=== PATIENT | female | born 1975 | race Caucasian/White ===

== ENCOUNTER 2017-08-09 12:30 | Outpatient (CLI) | payer MEDICARE ==
[~2017-08-09] VITALS: Ht 165.1 cm; Wt 64.4 kg
[2017-08-09 13:11] VITALS: BP 112/73
[2017-08-09 13:25] LABS: BASOPHILS % (AUTO) 0 % (0-10); EOSINOPHILS # (AUTO) 0.2 10^3/uL (0.0-0.3); EOSINOPHILS % (AUTO) 2 % (0-10); HEMATOCRIT 39 % (35-52); HEMOGLOBIN 13.9 G/DL (11.5-16.0); LYMPHOCYTES # (AUTO) 3.5 X 10^3 (1.0-4.0); LYMPHOCYTES % (AUTO) 32 % (12-44); MEAN CORPUSCULAR HEMOGLOBIN 33 PG (25-34); MEAN CORPUSCULAR HGB CONC 35 G/DL (32-36); MEAN CORPUSCULAR VOLUME 92 FL (80-99); MEAN PLATELET VOLUME 10.6 FL (7.4-10.4); MONOCYTES # (AUTO) 0.5 X 10^3 (0.0-1.0); MONOCYTES % (AUTO) 5 % (0-12); NEUTROPHILS # (AUTO) 6.7 X 10^3 (1.8-7.8); NEUTROPHILS % (AUTO) 62 % (42-75); PLATELET COUNT 315 10^3/uL (130-400); RED BLOOD COUNT 4.27 10^6/uL (4.35-5.85); RED CELL DISTRIBUTION WIDTH 13.7 % (10.0-14.5); WHITE BLOOD COUNT 10.9 10^3/uL (4.3-11.0)
[2017-08-09] MEDS ORDERED: LURA40TA3 PO (14:28)
[2017-08-09] MEDS ORDERED: OXCA300T PO (14:28)
[2017-08-09] MEDS ORDERED: CLON0.1T PO (14:28)
== END 2017-08-09 13:00 | disposition home or self-care (01) ==
LOC: PREOP 12:30
PROVIDERS: ATTEND Obstetrics & Gynecology
DX: Z01.812 Encounter for preprocedural laboratory examination (principal); Z11.2 Encounter for screening for other bacterial diseases; D25.9 Leiomyoma of uterus, unspecified; N87.9 Dysplasia of cervix uteri, unspecified
CPT/HCPCS: 36415; 85025; 86850; 86900; 86901; 87081

== ENCOUNTER 2017-08-16 06:00 | Day surgery (SDC) | payer MEDICARE ==
[~2017-08-16] VITALS: Ht 165.1 cm; Wt 64.4 kg
[~2017-08-16 06:00] MED LIST: CLON0.1T PO; LURA40TA3 PO; OXCA300T PO
[2017-08-16] MEDS ORDERED: ATRACURIUM 50 MG/5 ML (TRACRIUM) IV ONE ×4 (06:01→08:39)
--- OUTSIDE RECORDS SUMMARY | 2017-08-16 06:17 | XMS REPORT ---
Author Author ÁNGEL SYDNI Organization [facility] Address [address] [place] [address] Care Team Providers Care Technical Sales Director Name Role Phone NIURKAANNABELLA ONEILA Unavailable PROBLEMS Type Condition ICD9-CM Code [id number] Code Onset Dates Condition Status SNOMED Code Problem Severe episode of recurrent major depressive disorder, without psychotic features F33.2 Active 53026914 Problem PTSD (post-traumatic stress disorder) F43.10 Active 25699516 Problem Bipolar 2 disorder F31.81 Active 02448032 Problem Cannabis use disorder, moderate, dependence F12.20 Active 07718538 Problem Dysmenorrhea N94.6 Active 433089168 Problem Methamphetamine use disorder, 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 Active 339564063 Problem Methamphetamine use disorder, moderate, 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 Active 15237521 Problem Cannabis use disorder, mild, abuse F12.10 Active 56560768 Problem High risk medication use Z79.899 Active 933277640 ALLERGIES No Information ENCOUNTERS Encounter Location Date Diagnosis [facility] [id number] [place] [address]1141- 6247 July, Bipolar 2 disorder F31.81 ; PTSD (post-traumatic stress disorder) F43.10 ; Methamphetamine use disorder, 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 and Cannabis use disorder, moderate, dependence F12.20 [facility] [address] [place] [address] 73559- 5681 Jun, [facility] [address] [place] [id number] [place] [address] 96910- 9833 May, Bipolar 2 disorder F31.81 ; PTSD (post-traumatic stress disorder) F43.10 ; Methamphetamine use disorder, 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 and Cannabis use disorder, moderate, dependence F12.20 [facility] [address] [place] [address] 29827- 2909 May, [place] [address] [address] May, Well woman exam with routine gynecological exam Z01.419 ; Dysmenorrhea N94.6 ; Breast cancer screening Z12.31 and Poor dentition K08.9 [place] [address] [address] May, [place] [address] [place] [id number] [place] [address] 97380- 5092 Feb, Bipolar 2 disorder F31.81 ; PTSD (post-traumatic stress disorder) F43.10 ; Methamphetamine use disorder, 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 and Cannabis use disorder, mild, abuse F12.10 [place] [address] [place] [address] 36741- 3072 Feb, [place] [address] [place] [id number] [place] [address] 95802- 1121 Jan, High risk medication use Z79.899 [place] [id number] [place] [address] 17903- 2396 Jan, Bipolar 2 disorder F31.81 ; PTSD (post-traumatic stress disorder) F43.10 ; Methamphetamine use disorder, moderate, 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 and Cannabis use disorder, mild, abuse F12.10 [place] [address] [place] [address] 81650- 6191 Jan, Bipolar 2 disorder F31.81 ; PTSD (post-traumatic stress disorder) F43.10 ; Methamphetamine use disorder, moderate, 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 and Cannabis use disorder, mild, abuse F12.10 [place] [address] [place] [address] 05053- 8110 Jan, High risk medication use Z79.899 ; Cannabis use disorder, mild, abuse F12.10 ; Methamphetamine use disorder, moderate, 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 ; PTSD (post-traumatic stress disorder) F43.10 and Bipolar 2 disorder F31.81 [place] [id number] [place] [address] 23455- 0468 Jan, Bipolar 2 disorder F31.81 ; PTSD (post-traumatic stress disorder) F43.10 ; Methamphetamine use disorder, moderate, 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 and Cannabis use disorder, mild, abuse F12.10 [place] [address] [place] [address] [id number] [place] [address] 36957- 9514 Jan, High risk medication use Z79.899 [place] [address] [address]- 5186 Jan, High risk medication use Z79.899 [facility] [address] [place] [address] 719169 -6473 Jan, Viral pharyngitis J02.[address] 86[address]- 5153 Jan, High risk medication use Z79.899 [place] [address] 17484- 4325 Dec, High risk medication use Z79.899 ; PTSD (post-traumatic stress disorder) F43.10 ; Bipolar 2 disorder F31.81 ; Methamphetamine use disorder, moderate, 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 and Cannabis use disorder, mild, abuse F12.10 [place] [id number] [place] [address] 92233- 2962 Dec, Tailbone injury, subsequent encounter S39.92XD and Encounter for immunization Z23 [address] [address]- 8810 Dec, Bipolar 2 disorder F31.81 and PTSD (post-traumatic stress disorder) F43.10 [facility] [address] [place] [address] 60524 -3566 Dec, Acute midline low back pain without sciatica M54.[address] 56894- 1332 Dec, Bipolar 2 disorder F31.81 [facility] [address] [id number] 26 Nov, 2016 Dental examination Z01.20 [facility] [address] [place] [address] 740390- 4006 25 Nov, 2016 Dental examination Z01.20 [facility] [address] [address] 97[address] 25 Nov, 2016 Urine discoloration R39.89 ; Acute cystitis with hematuria N30.01 and Severe episode of recurrent major depressive disorder, without psychotic features F33.2 [facility] [id number] [place] [address] 39397- 2386 14 Jun, 2014 [facility] [id number] [place] [address] 42860- 0302 Jun, [facility] [id number] [place] [address] 99691- 7976 May, [facility] [address] [place] [address] 16192- 2543 Jan, [facility] [id number] [place] [address] 27772- 0786 Feb, [facility] [address] [address]- 254 Feb, [facility] [address] [place] [address] 20768 2546 16 Jan, 2010 [facility] [address] [address] 2546 Feb, [facility] [id number] [place] [address] 01035 2546 Jan, [facility] [address] [address]- 2546 Jan, [facility] [address] [place] [address] 00894- 2546 Jan, [facility] [address] [facility] [place] [id number] [address] 14 Dec, 2008 IMMUNIZATIONS No Known Immunizations SOCIAL HISTORY Never Assessed REASON FOR VISIT PALS-latuda PLAN OF CARE VITAL SIGNS MEDICATIONS Medication Instructions Dosage Frequency Start Date End Date Duration Status Latuda 40 mg Orally every dinner time 1 tablet Dec, 90 days Active RESULTS No Results PROCEDURES No Known procedures INSTRUCTIONS MEDICATIONS ADMINISTERED No Known Medications MEDICAL (GENERAL) HISTORY Type Description Date Medical History endometriosis 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
--- OUTSIDE RECORDS SUMMARY | 2017-08-16 06:17 | XMS REPORT ---
Author Author MADDENHUNTER AmezquitaELE Organization [facility] Address [address] [place] [address] Care Team Providers Care Operations Manager Station Name Role Phone SUJEY MADDEN Unavailable PROBLEMS Type Condition ICD9-CM Code [id number] Code Onset Dates Condition Status SNOMED Code Problem Severe episode of recurrent major depressive disorder, without psychotic features F33.2 Active 83856365 Problem PTSD (post-traumatic stress disorder) F43.10 Active 98475889 Problem Bipolar 2 disorder F31.81 Active 30487608 Problem Cannabis use disorder, moderate, dependence F12.20 Active 11327848 Problem Dysmenorrhea N94.6 Active 930787530 Problem Methamphetamine use disorder, 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 Active 223515445 Problem Methamphetamine use disorder, moderate, 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 Active 28024274 Problem Cannabis use disorder, mild, abuse F12.10 Active 44968108 Problem High risk medication use Z79.899 Active 394556652 ALLERGIES No Known Allergies ENCOUNTERS Encounter Location Date Diagnosis [facility] [address] [place] [address] 38193- 1268 July, Bipolar 2 disorder F31.81 ; PTSD (post-traumatic stress disorder) F43.10 ; Methamphetamine use disorder, 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 and Cannabis use disorder, moderate, dependence F12.20 [facility] [address] [place] [address] 81351- 7627 Jun, [facility] [address] [place] [id number] [place] [address] 05300- 8669 May, Bipolar 2 disorder F31.81 ; PTSD (post-traumatic stress disorder) F43.10 ; Methamphetamine use disorder, 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 and Cannabis use disorder, moderate, dependence F12.20 [facility] [address] [place] [address] 38802- 7144 May, [place] [address] [address]- 4008 May, Well woman exam with routine gynecological exam Z01.419 ; Dysmenorrhea N94.6 ; Breast cancer screening Z12.31 and Poor dentition K08.9 [place] [address] [address]- [address] May, [place] [address] [place] [id number] [place] [address] 65698- 1927 Feb, Bipolar 2 disorder F31.81 ; PTSD (post-traumatic stress disorder) F43.10 ; Methamphetamine use disorder, 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 and Cannabis use disorder, mild, abuse F12.10 [place] [address] [place] [id number] [place] [address] 66406- 3464 Feb, [place] [address] [place] [id number] [place] [address] 08923- 2789 Jan, High risk medication use Z79.899 [place] [address] [place] [id number] [place] [address] 01700- 6742 Jan, Bipolar 2 disorder F31.81 ; PTSD (post-traumatic stress disorder) F43.10 ; Methamphetamine use disorder, moderate, 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10 and Bipolar 2 disorder F31.81 [place] [id number] [place] [address] 95227- 8614 Jan, Bipolar 2 disorder F31.81 ; PTSD (post-traumatic stress disorder) F43.10 ; Methamphetamine use disorder, moderate, 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 and Cannabis use disorder, mild, abuse F12.10 [place] [address] [place] [id number] [place] [address] 93293- 4819 Jan, High risk medication use Z79.899 [place] [address] 21765- 2547 Jan, High risk medication use Z79.899 [facility] [address] [place] [address] 324223 -7684 Jan, Viral pharyngitis J02.9 [place] [address] 26631- 6114 Jan, High risk medication use Z79.899 [place] [address] 28106- 5969 Dec, High risk medication use Z79.899 ; PTSD (post-traumatic stress disorder) F43.10 ; Bipolar 2 disorder F31.81 ; Methamphetamine use disorder, moderate, 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 and Cannabis use disorder, mild, abuse F12.10 [place] [address] [place] [id number] [place] [address] 27155- 5471 Dec, Tailbone injury, subsequent encounter S39.92XD and Encounter for immunization Z23 [place] [id number] [place] [address] 56738- 1824 Dec, Bipolar 2 disorder F31.81 and PTSD (post-traumatic stress disorder) F43.10 [facility] [address] [place] [address] 17333 -3546 Dec, Acute midline low back pain without sciatica M54.[address] 7[address]65- 0316 Dec, Bipolar 2 disorder F31.81 [facility] [address] [id number] [id number] 26 Nov, 2016 Dental examination Z01.20 [facility] [address] [id number] [place] [address] 51769- 2528 25 Nov, 2016 Dental examination Z01.20 [facility] [address] [place] [id number] [place] [address] 23766- 6620 25 Nov, 2016 Urine discoloration R39.89 ; Acute cystitis with hematuria N30.01 and Severe episode of recurrent major depressive disorder, without psychotic features F33.2 [facility] [id number] [place] [address] 47507- 9946 14 Jun, 2014 [facility] [id number] [place] [address] 57819- 5603 13 Jun, 2014 [facility] [id number] [place] [address] 64958- 3326 May, [facility] [address] [place] [address] 45806- 2143 Jan, [facility] [address] [id number] [place] [address] 92316- 5029 Feb, [facility] [address], [place] [address]- 2548 Feb, [facility] [address] [place] [address] 89550- 2543 16 Jan, 2010 [facility] [address] [place] [address] 01469 2549 Feb, [facility] [address] [id number] [place] [address] 19563 2546 Jan, [facility] [address], [place] [address]- 2546 Jan, [facility] [id number] [place] [address] 80807- 2546 Jan, [facility] [address] [facility] [id number] [address]- 0278 Dec, IMMUNIZATIONS No Known Immunizations SOCIAL HISTORY Never Assessed REASON FOR VISIT UTI symptoms--tcuppettRN, -Discolored urine PLAN OF CARE Activity Details Follow Up 3 Weeks Reason:est care VITAL SIGNS Weight 141.5 lbs 2016-11-27 Temperature 97.2 degrees Fahrenheit 2016-11-27 Heart Rate 76 bpm 2016-11-27 Respiratory Rate 18 2016-11-27 Blood pressure systolic 118 mmHg 2016-11-27 Blood pressure diastolic 78 mmHg 2016-11-27 MEDICATIONS Medication Instructions Dosage Frequency Start Date End Date Duration Status Ciprofloxacin HCl 500 mg Orally Twice a day 1 tablet 12h Nov, Dec, 07 days Active RESULTS Name Result Date Reference Range UA LONG DIP (IN HOUSE) 2016-11-27 Lot # [id number] Exp date 06/02/17 Clarity clear Color yellow Odor no GLU Negative MARLYN Negative KET Negative SG 1.020 BLO trace-intact pH 6.0 Protein Trace URO 1.0 NIT Negative WES Trace Lot # Exp date CULTURE, URINE 2016-11-27 Urine Culture, Routine Final report Result 1 No growth PROCEDURES Procedure Date Ordered Result Body Site [facility] VISIT ESTABLISHED PATIENT Nov 27, 2016 LAB NOT BILLED BY [facility] Nov 27, 2016 URINALYSIS, AUTO, W/O SCOPE Nov 27, 2016 INSTRUCTIONS MEDICATIONS ADMINISTERED No Known Medications MEDICAL (GENERAL) HISTORY Type Description Date Medical History endometriosis 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
--- OUTSIDE RECORDS SUMMARY | 2017-08-16 06:18 | XMS REPORT ---
Author Author ÁNGEL SYDNI Organization [facility] [place] Address [address] [place] [address] Care Team Providers Care Assistant Store Manager Operations Name Role Phone NIURKAANNABELLA ONEILA Unavailable PROBLEMS Type Condition ICD9-CM Code PSY20-IL Code Onset Dates Condition Status SNOMED Code Problem Severe episode of recurrent major depressive disorder, without psychotic features F33.2 Active 30501849 Problem PTSD (post-traumatic stress disorder) F43.10 Active 99385453 Problem Bipolar 2 disorder F31.81 Active 72809330 Problem Cannabis use disorder, moderate, dependence F12.20 Active 83640858 Problem Dysmenorrhea N94.6 Active 254267354 Problem Methamphetamine use disorder, 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 Active 862849767 Problem Methamphetamine use disorder, moderate, 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 Active 26096989 Problem Cannabis use disorder, mild, abuse F12.10 Active 47521536 Problem High risk medication use Z79.899 Active 549964776 ALLERGIES No Information ENCOUNTERS Encounter Location Date Diagnosis [facility] [id number] [place] [address]493- 1157 July, Bipolar 2 disorder F31.81 ; PTSD (post-traumatic stress disorder) F43.10 ; Methamphetamine use disorder, 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 and Cannabis use disorder, moderate, dependence F12.20 [facility] [id number] [place] [address] 21020- 4754 Jun, [facility] [address] [place] [id number] [place] [address] 56088- 7027 May, Bipolar 2 disorder F31.81 ; PTSD (post-traumatic stress disorder) F43.10 ; Methamphetamine use disorder, 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 and Cannabis use disorder, moderate, dependence F12.20 [facility] [id number] [place] [address] 46576- 9435 May, [place] [address] [address] May, Well woman exam with routine gynecological exam Z01.419 ; Dysmenorrhea N94.6 ; Breast cancer screening Z12.31 and Poor dentition K08.9 [place] [address] [address] May, [place] [address] [place] [id number] [place] [address] 26026- 8190 Feb, Bipolar 2 disorder F31.81 ; PTSD (post-traumatic stress disorder) F43.10 ; Methamphetamine use disorder, 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 and Cannabis use disorder, mild, abuse F12.10 [place] [id number] [place] [address] 23920- 0261 Feb, [place] [address] [place] [id number] [place] [address] 37732- 7310 Jan, High risk medication use Z79.899 [place] [address] [place] [address] [id number] [place] [address] 64693- 8234 Jan, Bipolar 2 disorder F31.81 ; PTSD (post-traumatic stress disorder) F43.10 ; Methamphetamine use disorder, moderate, 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 and Cannabis use disorder, mild, abuse F12.10 [place] [id number] [place] [address] 01233- 5727 Jan, Bipolar 2 disorder F31.81 ; PTSD (post-traumatic stress disorder) F43.10 ; Methamphetamine use disorder, moderate, 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 and Cannabis use disorder, mild, abuse F12.10 [place] [id number] [place] [address] 98775- 3585 Jan, High risk medication use Z79.899 ; Cannabis use disorder, mild, abuse F12.10 ; Methamphetamine use disorder, moderate, 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 ; PTSD (post-traumatic stress disorder) F43.10 and Bipolar 2 disorder F31.81 [place] [id number] [place] [address] 62567- 8235 Jan, Bipolar 2 disorder F31.81 ; PTSD (post-traumatic stress disorder) F43.10 ; Methamphetamine use disorder, moderate, 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 and Cannabis use disorder, mild, abuse F12.10 [place] [address] [place] [id number] [place] [address] 52139- 9753 Jan, High risk medication use Z79.899 [place] [address] 16647- 8012 Jan, High risk medication use Z79.899 [facility] [address] [place] [address] 389128 -0940 Jan, Viral pharyngitis J02.[address] [address]- 6971 Jan, High risk medication use Z79.899 [place] [address] 60752- 6947 Dec, High risk medication use Z79.899 ; PTSD (post-traumatic stress disorder) F43.10 ; Bipolar 2 disorder F31.81 ; Methamphetamine use disorder, moderate, 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 and Cannabis use disorder, mild, abuse F12.10 [place] [id number] [place] [address] 81917- 6758 Dec, Tailbone injury, subsequent encounter S39.92XD and Encounter for immunization Z23 [address] [address]- 7354 Dec, Bipolar 2 disorder F31.81 and PTSD (post-traumatic stress disorder) F43.10 [facility] [address] [place] [address] 35060 -7430 Dec, Acute midline low back pain without sciatica M54.[address] 09359- 6477 Dec, Bipolar 2 disorder F31.81 [facility] [address] [id number] 26 Nov, 2016 Dental examination Z01.20 [facility] [id number] [place] [address] 488337- 9866 25 Nov, 2016 Dental examination Z01.20 [facility] [address], [place] [address] 25 Nov, 2016 Urine discoloration R39.89 ; Acute cystitis with hematuria N30.01 and Severe episode of recurrent major depressive disorder, without psychotic features F33.2 [facility] [id number] [place] [address] 38340- 1466 14 Jun, 2014 [facility] [place] [address] [place] [address] [id number] [place] [address] 62534- 0798 Jun, [facility] [id number] [place] [address] 32279- 3222 May, [facility] [id number] [place] [address] 92328- 2549 Jan, [facility] [id number] [place] [address] 81298- 5546 Feb, [facility] [address] [address] Feb, [facility] [id number] [place] [address] 14102 2546 16 Jan, 2010 [facility] [address], [place] [address] 2546 Feb, [facility] [address] [address] [id number] [place] [address] 92423 2546 Jan, [facility] [address], [place] [address]- 2546 Jan, [facility] [id number] [place] [address] 29076- 2546 Jan, [facility] [address] [facility] [id number] [address] Dec, IMMUNIZATIONS No Known Immunizations SOCIAL HISTORY Never Assessed REASON FOR VISIT medication PLAN OF CARE VITAL SIGNS MEDICATIONS Medication Instructions Dosage Frequency Start Date End Date Duration Status Latuda 40 MG Orally every dinner time 1 tablet Dec, Active RESULTS No Results PROCEDURES No Known procedures INSTRUCTIONS MEDICATIONS ADMINISTERED No Known Medications MEDICAL (GENERAL) HISTORY Type Description Date Medical History endometriosis 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
--- OUTSIDE RECORDS SUMMARY | 2017-08-16 06:18 | XMS REPORT ---
Author Author ÁNGEL SYDNI Organization [facility] [place] Address [address] [place] [address] Care Team Providers Care Food Safety Field Specialist Name Role Phone NIURKAANNABELLA ONEILA Unavailable PROBLEMS Type Condition ICD9-CM Code XHF30-DS Code Onset Dates Condition Status SNOMED Code Problem Severe episode of recurrent major depressive disorder, without psychotic features F33.2 Active 89176423 Problem PTSD (post-traumatic stress disorder) F43.10 Active 19652225 Problem Bipolar 2 disorder F31.81 Active 02311593 Problem Cannabis use disorder, moderate, dependence F12.20 Active 09000012 Problem Dysmenorrhea N94.6 Active 349200245 Problem Methamphetamine use disorder, 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 Active 357454548 Problem Methamphetamine use disorder, moderate, 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 Active 25051164 Problem Cannabis use disorder, mild, abuse F12.10 Active 49103897 Problem High risk medication use Z79.899 Active 110684723 ALLERGIES No Information ENCOUNTERS Encounter Location Date Diagnosis [facility] [place] [address] [place] [address] 57940- 7968 July, Bipolar 2 disorder F31.81 ; PTSD (post-traumatic stress disorder) F43.10 ; Methamphetamine use disorder, 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 and Cannabis use disorder, moderate, dependence F12.20 [facility] [place] [address] [place] [address] 39030- 8300 Jun, [facility] [place] [address] [place] [id number] [place] [address] 00946- 6672 May, Bipolar 2 disorder F31.81 ; PTSD (post-traumatic stress disorder) F43.10 ; Methamphetamine use disorder, 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 and Cannabis use disorder, moderate, dependence F12.20 [facility] [place] [address] [place] [address] 97379- 0945 May, [place] [address], [place] [address]- 1167 May, Well woman exam with routine gynecological exam Z01.419 ; Dysmenorrhea N94.6 ; Breast cancer screening Z12.31 and Poor dentition K08.9 [place] [address], [place] [address]- 8[address] May, [place] [address] [place] [id number] [place] [address] 15780- 8817 Feb, Bipolar 2 disorder F31.81 ; PTSD (post-traumatic stress disorder) F43.10 ; Methamphetamine use disorder, 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 and Cannabis use disorder, mild, abuse F12.10 [place] [address] [place] [address] 93037- 3737 Feb, [place] [address] [place] [id number] [place] [address] 13069- 3955 Jan, High risk medication use Z79.899 [place] [address] [place] [id number] [place] [address] 56559- 4161 Jan, Bipolar 2 disorder F31.81 ; PTSD (post-traumatic stress disorder) F43.10 ; Methamphetamine use disorder, moderate, 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 and Cannabis use disorder, mild, abuse F12.10 [place] [id number] [place] [address] 41547- 9081 Jan, Bipolar 2 disorder F31.81 ; PTSD (post-traumatic stress disorder) F43.10 ; Methamphetamine use disorder, moderate, 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 and Cannabis use disorder, mild, abuse F12.10 [place] [address] [place] [address] 87179- 8186 Jan, High risk medication use Z79.899 ; Cannabis use disorder, mild, abuse F12.10 ; Methamphetamine use disorder, moderate, 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 ; PTSD (post-traumatic stress disorder) F43.10 and Bipolar 2 disorder F31.81 [place] [id number] [place] [address] 03561- 4219 Jan, Bipolar 2 disorder F31.81 ; PTSD (post-traumatic stress disorder) F43.10 ; Methamphetamine use disorder, moderate, 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 and Cannabis use disorder, mild, abuse F12.10 [place] [address] [place] [id number] [place] [address] 47983- 1723 Jan, High risk medication use Z79.899 [place] [address] 13340- 9406 Jan, High risk medication use Z79.899 [facility] [address] [place] [address] [phone] -2777 Jan, Viral pharyngitis J02.[address] 94026- 5024 Jan, High risk medication use Z79.899 [place] [address] 60893- 8980 Dec, High risk medication use Z79.899 ; PTSD (post-traumatic stress disorder) F43.10 ; Bipolar 2 disorder F31.81 ; Methamphetamine use disorder, moderate, 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 [address] [place] [address] 72881 -9133 Dec, Acute midline low back pain without sciatica M54.[address] 66140- 8006 Dec, Bipolar 2 disorder F31.81 [facility] [address] [id number] 26 Nov, 2016 Dental examination Z01.20 [facility] [place] [address] [place] [address] 778385- 2236 25 Nov, 2016 Dental examination Z01.20 [facility] [place] [address], [place] [address]- 9390 25 Nov, 2016 Urine discoloration R39.89 ; Acute cystitis with hematuria N30.01 and Severe episode of recurrent major depressive disorder, without psychotic features F33.2 [facility] [place] [address] [place] [address] [id number] [place] [address] 69778- 2766 14 Jun, 2014 [facility] [place] [address] [address] [id number] [place] [address] 61386- 6088 Jun, [facility] [place] [address] [place] [address] [id number] [place] [address] 66193- 2402 May, [facility] [place] [address] [place] [address] 33344- 2547 Jan, [facility] [place] [address] [address] [id number] [place] [address] 24757- 9406 Feb, [facility] [place] [address], [place] [address]- 2544 Feb, [facility] [place] [id number] [place] [address] 07143 2546 16 Jan, 2010 [facility] [place] [address], [place] [address] 2546 Feb, [facility] [place] [address] [address] [id number] [place] [address] 63672 2546 Jan, [facility] [place] [address], [place] [address]- 2546 Jan, [facility] [place] [id number] [place] [address] 87391- 2546 Jan, [facility] [place] [address] [facility] [id number] [place] [address]- 7924 14 Dec, 2008 IMMUNIZATIONS No Known Immunizations SOCIAL HISTORY Never Assessed REASON FOR VISIT PALS IN- Latuda PLAN OF CARE VITAL SIGNS MEDICATIONS No Known Medications RESULTS No Results PROCEDURES No Known procedures INSTRUCTIONS MEDICATIONS ADMINISTERED No Known Medications MEDICAL (GENERAL) HISTORY Type Description Date Medical History endometriosis 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
--- OUTSIDE RECORDS SUMMARY | 2017-08-16 06:18 | XMS REPORT ---
Author Author LATIA RUBIO Organization [facility] Address [address] [place] [address] Care Team Providers Care Transportation Officer Name Role Phone LATIA RUBIO Unavailable PROBLEMS Type Condition ICD9-CM Code [id number] Code Onset Dates Condition Status SNOMED Code Problem Severe episode of recurrent major depressive disorder, without psychotic features F33.2 Active 61384690 Problem PTSD (post-traumatic stress disorder) F43.10 Active 88909034 Problem Bipolar 2 disorder F31.81 Active 87048613 Problem Cannabis use disorder, moderate, dependence F12.20 Active 14773873 Problem Dysmenorrhea N94.6 Active 847788854 Problem Methamphetamine use disorder, 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 Active 646822539 Problem Methamphetamine use disorder, moderate, 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 Active 65212052 Problem Cannabis use disorder, mild, abuse F12.10 Active 54462520 Problem High risk medication use Z79.899 Active 834187789 ALLERGIES No Known Allergies ENCOUNTERS Encounter Location Date Diagnosis [facility] [address] [place] [address] 29650- 6791 July, Bipolar 2 disorder F31.81 ; PTSD (post-traumatic stress disorder) F43.10 ; Methamphetamine use disorder, 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 and Cannabis use disorder, moderate, dependence F12.20 [facility] [address] [place] [address] 10372- 6814 Jun, [facility] [address] [place] [address] [id number] [place] [address] 13106- 8074 May, Bipolar 2 disorder F31.81 ; PTSD (post-traumatic stress disorder) F43.10 ; Methamphetamine use disorder, 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 and Cannabis use disorder, moderate, dependence F12.20 [facility] [address] [place] [address] 20552- 4042 May, [place] [address] [address] May, Well woman exam with routine gynecological exam Z01.419 ; Dysmenorrhea N94.6 ; Breast cancer screening Z12.31 and Poor dentition K08.9 [place] [address], [place] [address] May, [place] [address] [place] [address] [id number] [place] [address] 60756- 7475 Feb, Bipolar 2 disorder F31.81 ; PTSD (post-traumatic stress disorder) F43.10 ; Methamphetamine use disorder, 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 and Cannabis use disorder, mild, abuse F12.10 [place] [id number] [place] [address] 42394- 4421 Feb, [place] [address] [id number] [place] [address] 75232- 9052 Jan, High risk medication use Z79.899 [place] [id number] [place] [address] 87009- 6368 Jan, Bipolar 2 disorder F31.81 ; PTSD (post-traumatic stress disorder) F43.10 ; Methamphetamine use disorder, moderate, 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10 and Bipolar 2 disorder F31.81 [place] [id number] [place] [address] 01450- 1316 Jan, Bipolar 2 disorder F31.81 ; PTSD (post-traumatic stress disorder) F43.10 ; Methamphetamine use disorder, moderate, 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 and Cannabis use disorder, mild, abuse F12.10 [place] [address] [address] [id number] [place] [address] 27615- 7004 Jan, High risk medication use Z79.899 [place] [address] 43569- 3184 Jan, High risk medication use Z79.899 [facility] [address] [place] [address] 127403 -3494 Jan, Viral pharyngitis J02.9 [place] [address] 88695- 4172 Jan, High risk medication use Z79.899 [place] [address] 83705- 0029 Dec, High risk medication use Z79.899 ; PTSD (post-traumatic stress disorder) F43.10 ; Bipolar 2 disorder F31.81 ; Methamphetamine use disorder, moderate, 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 and Cannabis use disorder, mild, abuse F12.10 [place] [address] [id number] [place] [address] 94549- 5395 Dec, Tailbone injury, subsequent encounter S39.92XD and Encounter for immunization Z23 [place] [id number] [place] [address] 53381- 4176 Dec, Bipolar 2 disorder F31.81 and PTSD (post-traumatic stress disorder) F43.10 [facility] [address] [place] [address] 22022 -1790 Dec, Acute midline low back pain without sciatica M54.[address] 7[address]16- 1482 Dec, Bipolar 2 disorder F31.81 [facility] [address] [id number] [id number] 26 Nov, 2016 Dental examination Z01.20 [facility] [id number] [place] [address] 72462- 9472 25 Nov, 2016 Dental examination Z01.20 [facility] [id number] [place] [address] 84950- 3582 25 Nov, 2016 Urine discoloration R39.89 ; Acute cystitis with hematuria N30.01 and Severe episode of recurrent major depressive disorder, without psychotic features F33.2 [facility] [id number] [place] [address] 31733- 2876 14 Jun, 2014 [facility] [id number] [place] [address] 75579- 0464 13 Jun, 2014 [facility] [id number] [place] [address] 26919- 3572 May, [facility] [address] [place] [address] 00338- 5517 Jan, [facility] [id number] [place] [address] 63527- 2559 Feb, [facility] [address], [place] [address]- 2549 Feb, [facility] [address] [place] [address] 05397- 2542 16 Jan, 2010 [facility] [address] [place] [address] 55677 2544 Feb, [facility] [id number] [place] [address] 23277 2546 Jan, [facility] [address] [address]- 2546 Jan, [facility] [address] [place] [address] 01753- 2546 Jan, [facility] [address] [facility] [id number] [place] [address]- 7860 14 Dec, 2008 IMMUNIZATIONS Vaccine Route Administration Date Status FLUARIX QUAD (3 AND UP) 2016 IM Intramuscular Dec 26, 2016 Administered SOCIAL HISTORY Never Assessed REASON FOR VISIT Establish Care, pt. states she came here earlier in the month due to falling down and having back pain and complains of still having lower back pain --- [place],[facility] PLAN OF CARE VITAL SIGNS Height 66 in 2016-12-26 Weight 143.7 lbs 2016-12-26 Temperature 98.3 degrees Fahrenheit 2016-12-26 Heart Rate 90 bpm 2016-12-26 Respiratory Rate 20 2016-12-26 BMI 23.19 kg/m2 2016-12-26 Blood pressure systolic 137 mmHg 2016-12-26 Blood pressure diastolic 84 mmHg 2016-12-26 MEDICATIONS Medication Instructions Dosage Frequency Start Date End Date Duration Status PredniSONE 50 mg Orally Once a day 1 tablet 24h Dec, Dec, 07 days Active RESULTS No Results PROCEDURES Procedure Date Ordered Result Body Site FLUARIX QUAD (3 AND UP) 2016Dec 26, 2016 SINGLE IMMUNIZATION ADMIN Dec 26, 2016 Media Visit needs to be added with another visit on the same day Dec 26, 2016 INSTRUCTIONS MEDICATIONS ADMINISTERED No Known Medications MEDICAL (GENERAL) HISTORY Type Description Date Medical History endometriosis Medical History 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
--- OUTSIDE RECORDS SUMMARY | 2017-08-16 06:18 | XMS REPORT ---
Author Author ALDO GRAHAM [facility] IN [facility] Address [address] [place] [address] Care Team Providers Care Cable Respooler Name Role Phone SANTOS ALDO Unavailable PROBLEMS Type Condition ICD9-CM Code [id number] Code Onset Dates Condition Status SNOMED Code Problem Severe episode of recurrent major depressive disorder, without psychotic features F33.2 Active 47740332 Problem PTSD (post-traumatic stress disorder) F43.10 Active 27005386 Problem Bipolar 2 disorder F31.81 Active 31517870 Problem Cannabis use disorder, moderate, dependence F12.20 Active 26178305 Problem Dysmenorrhea N94.6 Active 989522257 Problem Methamphetamine use disorder, 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 Active 962887578 Problem Methamphetamine use disorder, moderate, 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 Active 07418109 Problem Cannabis use disorder, mild, abuse F12.10 Active 74234195 Problem High risk medication use Z79.899 Active 831365976 ALLERGIES No Known Allergies ENCOUNTERS Encounter Location Date Diagnosis [place] [address] [place] [address] 72799- 4523 July, Bipolar 2 disorder F31.81 ; PTSD (post-traumatic stress disorder) F43.10 ; Methamphetamine use disorder, 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 and Cannabis use disorder, moderate, dependence F12.20 [facility] [id number] [address] 8708 Jun, [facility] [id number] [place] [address] 30184- 5012 May, Bipolar 2 disorder F31.81 ; PTSD (post-traumatic stress disorder) F43.10 ; Methamphetamine use disorder, 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 and Cannabis use disorder, moderate, dependence F12.20 [facility] [address] [place] [address] 55937- 9728 May, [place] [address], [place] [address]- 0035 May, Well woman exam with routine gynecological exam Z01.419 ; Dysmenorrhea N94.6 ; Breast cancer screening Z12.31 and Poor dentition K08.9 [place] [address], [place] [address] 5977 May, [place] [address] [place] [address] [id number] [place] [address] 49727- 3389 Feb, Bipolar 2 disorder F31.81 ; PTSD (post-traumatic stress disorder) F43.10 ; Methamphetamine use disorder, 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 and Cannabis use disorder, mild, abuse F12.10 [place] [address] [place] [address] [id number] [place] [address] 96489- 0370 Feb, [place] [address] [place] [id number] [place] [address] 24930- 7616 Jan, High risk medication use Z79.899 [place] [address] [place] [address] [id number] [place] [address] 61927- 0900 Jan, Bipolar 2 disorder F31.81 ; PTSD (post-traumatic stress disorder) F43.10 ; Methamphetamine use disorder, moderate, 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 and Cannabis use disorder, mild, abuse F12.10 [place] [address] [place] [address] 52584- 9591 Jan, Bipolar 2 disorder F31.81 ; PTSD (post-traumatic stress disorder) F43.10 ; Methamphetamine use disorder, moderate, 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 and Cannabis use disorder, mild, abuse F12.10 [place] [address] [place] [address] 61700- 2452 Jan, High risk medication use Z79.899 ; Cannabis use disorder, mild, abuse F12.10 ; Methamphetamine use disorder, moderate, 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 ; PTSD (post-traumatic stress disorder) F43.10 and Bipolar 2 disorder F31.81 [address] [place] [address] 99890- 2511 Jan, Bipolar 2 disorder F31.81 ; PTSD (post-traumatic stress disorder) F43.10 ; Methamphetamine use disorder, moderate, 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 and Cannabis use disorder, mild, abuse F12.10 [place] [address] [place] [id number] [place] [address] 48607- 2802 Jan, High risk medication use Z79.899 [place] [address] 74198- 7734 Jan, High risk medication use Z79.899 [facility] [address] [place] [address] 775873 -0279 Jan, Viral pharyngitis J02.9 [place] [address] [address]72- 2002 Jan, High risk medication use Z79.899 [place] [address] 13321- 2873 Dec, High risk medication use Z79.899 ; PTSD (post-traumatic stress disorder) F43.10 ; Bipolar 2 disorder F31.81 ; Methamphetamine use disorder, moderate, 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 and Cannabis use disorder, mild, abuse F12.10 [place] [address] [place] [id number] [place] [address] 92696- 1531 Dec, Tailbone injury, subsequent encounter S39.92XD and Encounter for immunization Z23 [place] [id number] [place] [address] 06868- 5794 Dec, Bipolar 2 disorder F31.81 and PTSD (post-traumatic stress disorder) F43.10 [facility] [address] 69[address] -2526 Dec, Acute midline low back pain without sciatica M54.[address] 53998- 0919 Dec, Bipolar 2 disorder F31.81 [facility] [address] [id number] [id number] 26 Nov, 2016 Dental examination Z01.20 [facility] [address] [place] [address] 85039- 9226 25 Nov, 2016 Dental examination Z01.20 [facility] [address] [place] [address] 76925- 8213 25 Nov, 2016 Urine discoloration R39.89 ; Acute cystitis with hematuria N30.01 and Severe episode of recurrent major depressive disorder, without psychotic features F33.2 [facility] [address] [place] [id number] [place] [address] 87342- 0016 14 Jun, 2014 [facility] [address] [place] [id number] [place] [address] 95558- 2071 Jun, [facility] [address] [place] [id number] [place] [address] 46824- 8804 May, [facility] [address] [place] [address] 11376- 2543 Jan, [facility] [address] [place] [id number] [place] [address] 77498 2546 Feb, [facility] [address], [place] [address]- 2547 Feb, [facility] [address] [place] [address] 55727 2546 16 Jan, 2010 [facility] [address] [place] [address] 04440 2546 Feb, [facility] [address] [place] [id number] [place] [address] 29212 2546 30 Jan, 2009 [facility] [address], [place] [address] 2546 30 Jan, 2009 [facility] [address] [place] [address] 93548 2546 Jan, [facility] [address] [facility] [id number] [place] [address]- 3545 Dec, IMMUNIZATIONS No Known Immunizations SOCIAL HISTORY Never Assessed REASON FOR VISIT lower back pain after falling down some stairs last week. PATRICIA Morillo. PLAN OF CARE Activity Details Follow Up prn Reason: VITAL SIGNS Height 66 in 2016-12-15 Weight 147 lbs 2016-12-15 Temperature 98.2 degrees Fahrenheit 2016-12-15 Heart Rate 86 bpm 2016-12-15 Respiratory Rate 18 2016-12-15 BMI 23.72 kg/m2 2016-12-15 Blood pressure systolic 122 mmHg 2016-12-15 Blood pressure diastolic 76 mmHg 2016-12-15 MEDICATIONS No Known Medications RESULTS Name Result Date Reference Range Xray : Spine, Lumbar 2-3 views (IN HOUSE) 2016-12-15 PROCEDURES Procedure Date Ordered Result Body Site X-RAY EXAM OF LOWER SPINE Dec 15, 2016 [facility] VISIT ESTABLISHED PATIENT Dec 15, 2016 INSTRUCTIONS MEDICATIONS ADMINISTERED No Known Medications MEDICAL (GENERAL) HISTORY Type Description Date Medical History endometriosis 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
--- OUTSIDE RECORDS SUMMARY | 2017-08-16 06:18 | XMS REPORT ---
Author Author ÁNGEL SYDNI Organization [facility] Address [address] [place] [address] Care Team Providers Care Asbestos Cloth Inspector Name Role Phone NIURKAANNABELLA ONEILA Unavailable PROBLEMS Type Condition ICD9-CM Code [id number] Code Onset Dates Condition Status SNOMED Code Problem Severe episode of recurrent major depressive disorder, without psychotic features F33.2 Active 72989471 Problem PTSD (post-traumatic stress disorder) F43.10 Active 30600075 Problem Bipolar 2 disorder F31.81 Active 08202074 Problem Cannabis use disorder, moderate, dependence F12.20 Active 84855311 Problem Dysmenorrhea N94.6 Active 772676536 Problem Methamphetamine use disorder, 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 Active 558596516 Problem Methamphetamine use disorder, moderate, 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 Active 11418737 Problem Cannabis use disorder, mild, abuse F12.10 Active 23360067 Problem High risk medication use Z79.899 Active 542010763 ALLERGIES No Information ENCOUNTERS Encounter Location Date Diagnosis [facility] [address] [place] [address] 35622- 1261 July, Bipolar 2 disorder F31.81 ; PTSD (post-traumatic stress disorder) F43.10 ; Methamphetamine use disorder, 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 and Cannabis use disorder, moderate, dependence F12.20 [facility] [address] [place] [address] 29269- 6929 Jun, [facility] [address] [place] [id number] [place] [address] 87161- 5589 May, Bipolar 2 disorder F31.81 ; PTSD (post-traumatic stress disorder) F43.10 ; Methamphetamine use disorder, 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 and Cannabis use disorder, moderate, dependence F12.20 [facility] [address] [place] [address] 25572- 3017 May, [place] [address], [place] [address]- 4143 May, Well woman exam with routine gynecological exam Z01.419 ; Dysmenorrhea N94.6 ; Breast cancer screening Z12.31 and Poor dentition K08.9 [place] [address], [place] [address]- 4140 May, [place] [address] [place] [id number] [place] [address] 63869- 7747 Feb, Bipolar 2 disorder F31.81 ; PTSD (post-traumatic stress disorder) F43.10 ; Methamphetamine use disorder, 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 and Cannabis use disorder, mild, abuse F12.10 [place] [address] [place] [address] 83813- 2916 Feb, [place] [address] [place] [id number] [place] [address] 65793- 4991 Jan, High risk medication use Z79.899 [place] [address] [place] [id number] [place] [address] 80750- 8877 Jan, Bipolar 2 disorder F31.81 ; PTSD (post-traumatic stress disorder) F43.10 ; Methamphetamine use disorder, moderate, 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 and Cannabis use disorder, mild, abuse F12.10 [place] [address] [place] [address] 11211- 0804 Jan, Bipolar 2 disorder F31.81 ; PTSD (post-traumatic stress disorder) F43.10 ; Methamphetamine use disorder, moderate, 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 and Cannabis use disorder, mild, abuse F12.10 [place] [address] [place] [address] 47825- 4179 Jan, High risk medication use Z79.899 ; Cannabis use disorder, mild, abuse F12.10 ; Methamphetamine use disorder, moderate, 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 ; PTSD (post-traumatic stress disorder) F43.10 and Bipolar 2 disorder F31.81 [place] [id number] [place] [address] 14580- 9004 Jan, Bipolar 2 disorder F31.81 ; PTSD (post-traumatic stress disorder) F43.10 ; Methamphetamine use disorder, moderate, 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 and Cannabis use disorder, mild, abuse F12.10 [place] [address] [place] [id number] [place] [address] 74253- 4426 Jan, High risk medication use Z79.899 [place] [address] 74532- 0323 Jan, High risk medication use Z79.899 [facility] [address] [place] [address] 846186 -3714 Jan, Viral pharyngitis J02.[address] 16993- 6533 Jan, High risk medication use Z79.899 [place] [address] 15862- 6187 Dec, High risk medication use Z79.899 ; PTSD (post-traumatic stress disorder) F43.10 ; Bipolar 2 disorder F31.81 ; Methamphetamine use disorder, moderate, 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 and Cannabis use disorder, mild, abuse F12.10 [place] [id number] [place] [address] 08261- 4460 Dec, Tailbone injury, subsequent encounter S39.92XD and Encounter for immunization Z23 [address] 76435- 6701 Dec, Bipolar 2 disorder F31.81 and PTSD (post-traumatic stress disorder) F43.10 [facility] [address] [place] [address] 19040 -1406 Dec, Acute midline low back pain without sciatica M54.[address] 36609- 2264 Dec, Bipolar 2 disorder F31.81 [facility] [address] [id number] 26 Nov, 2016 Dental examination Z01.20 [facility] [address] [place] [address] 642323- 9706 25 Nov, 2016 Dental examination Z01.20 [facility] [address], [place] [address]- 5851 25 Nov, 2016 Urine discoloration R39.89 ; Acute cystitis with hematuria N30.01 and Severe episode of recurrent major depressive disorder, without psychotic features F33.2 [facility] [address] [place] [id number] [place] [address] 13691- 3816 14 Jun, 2014 [facility] [address] [place] [id number] [place] [address] 38121- 1205 Jun, [facility] [address] [place] [address] [id number] [place] [address] 62493- 8791 May, [facility] [address] [place] [address] 76828- 2545 Jan, [facility] [address] [id number] [place] [address] 64968- 8136 Feb, [facility] [address], [place] [address]- 2547 Feb, [facility] [address] [place] [address] 84610 2546 16 Jan, 2010 [facility] [address], [place] [address] 2546 Feb, [facility] [address] [place] [id number] [place] [address] 24988 2546 Jan, [facility] [address], [place] [address]- 2546 Jan, [facility] [address] [place] [address] 65255- 2546 Jan, [facility] [address] [facility] [id number] [place] [address]- 3941 Dec, IMMUNIZATIONS No Known Immunizations SOCIAL HISTORY Never Assessed REASON FOR VISIT medication concerns PLAN OF CARE VITAL SIGNS MEDICATIONS Medication Instructions Dosage Frequency Start Date End Date Duration Status Latuda 40 mg Orally every dinner time 1 tablet Dec, 30 day(s ) Active RESULTS No Results PROCEDURES No Known procedures INSTRUCTIONS MEDICATIONS ADMINISTERED No Known Medications MEDICAL (GENERAL) HISTORY Type Description Date Medical History endometriosis 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
--- OUTSIDE RECORDS SUMMARY | 2017-08-16 06:18 | XMS REPORT ---
Author Author ÁNGEL SYDNI Organization [facility] Address [address] [place] [address] Care Team Providers Care Hardboard Panel Printer Name Role Phone NIURKAANNABELLA ONEILA Unavailable PROBLEMS Type Condition ICD9-CM Code [id number] Code Onset Dates Condition Status SNOMED Code Problem Severe episode of recurrent major depressive disorder, without psychotic features F33.2 Active 19479539 Problem PTSD (post-traumatic stress disorder) F43.10 Active 57249470 Problem Bipolar 2 disorder F31.81 Active 93821840 Problem Cannabis use disorder, moderate, dependence F12.20 Active 91176222 Problem Dysmenorrhea N94.6 Active 386350272 Problem Methamphetamine use disorder, 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 Active 645943934 Problem Methamphetamine use disorder, moderate, 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 Active 09836449 Problem Cannabis use disorder, mild, abuse F12.10 Active 09573046 Problem High risk medication use Z79.899 Active 529089845 ALLERGIES No Information ENCOUNTERS Encounter Location Date Diagnosis [facility] [address] [place] [address] 74511- 8799 July, Bipolar 2 disorder F31.81 ; PTSD (post-traumatic stress disorder) F43.10 ; Methamphetamine use disorder, 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 and Cannabis use disorder, moderate, dependence F12.20 [facility] [address] [place] [address] 30517- 1874 Jun, [facility] [address] [id number] [place] [address] 49521- 5568 May, Bipolar 2 disorder F31.81 ; PTSD (post-traumatic stress disorder) F43.10 ; Methamphetamine use disorder, 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 and Cannabis use disorder, moderate, dependence F12.20 [facility] [address] [place] [address] 90176- 3523 May, [place] [address], [place] [address] May, Well woman exam with routine gynecological exam Z01.419 ; Dysmenorrhea N94.6 ; Breast cancer screening Z12.31 and Poor dentition K08.9 [place] [address], [place] [address] May, [place] [address] [place] [id number] [place] [address] 37918- 5815 Feb, Bipolar 2 disorder F31.81 ; PTSD (post-traumatic stress disorder) F43.10 ; Methamphetamine use disorder, 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 and Cannabis use disorder, mild, abuse F12.10 [place] [address] [place] [address] 58353- 1085 Feb, [place] [address] [place] [id number] [place] [address] 83385- 4541 Jan, High risk medication use Z79.899 [place] [id number] [place] [address] 08922- 4932 Jan, Bipolar 2 disorder F31.81 ; PTSD (post-traumatic stress disorder) F43.10 ; Methamphetamine use disorder, moderate, 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 and Cannabis use disorder, mild, abuse F12.10 [place] [address] [place] [address] 78972- 1193 Jan, Bipolar 2 disorder F31.81 ; PTSD (post-traumatic stress disorder) F43.10 ; Methamphetamine use disorder, moderate, 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 and Cannabis use disorder, mild, abuse F12.10 [place] [address] [place] [address] 69464- 5788 Jan, High risk medication use Z79.899 ; Cannabis use disorder, mild, abuse F12.10 ; Methamphetamine use disorder, moderate, 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 ; PTSD (post-traumatic stress disorder) F43.10 and Bipolar 2 disorder F31.81 [place] [id number] [place] [address] 79053- 8042 Jan, Bipolar 2 disorder F31.81 ; PTSD (post-traumatic stress disorder) F43.10 ; Methamphetamine use disorder, moderate, 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 and Cannabis use disorder, mild, abuse F12.10 [place] [id number] [place] [address] 33481- 5711 Jan, High risk medication use Z79.899 [place] [address] 54375- 0473 Jan, High risk medication use Z79.899 [facility] [address] [place] [address] 678888 -5380 Jan, Viral pharyngitis J02.[address] 52691- 1417 Jan, High risk medication use Z79.899 [place] [address] 45763- 7539 Dec, High risk medication use Z79.899 ; PTSD (post-traumatic stress disorder) F43.10 ; Bipolar 2 disorder F31.81 ; Methamphetamine use disorder, moderate, 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 and Cannabis use disorder, mild, abuse F12.10 [place] [id number] [place] [address] 54895- 2660 Dec, Tailbone injury, subsequent encounter S39.92XD and Encounter for immunization Z23 [address] 57377- 9121 Dec, Bipolar 2 disorder F31.81 and PTSD (post-traumatic stress disorder) F43.10 [facility] [address] [place] [address] 67764 -8372 Dec, Acute midline low back pain without sciatica M54.[address] 54974- 6095 Dec, Bipolar 2 disorder F31.81 [facility] [address] [id number] 26 Nov, 2016 Dental examination Z01.20 [facility] [address] [place] [address] 130872- 4936 25 Nov, 2016 Dental examination Z01.20 [facility] [address], [place] [address] 37[address] 25 Nov, 2016 Urine discoloration R39.89 ; Acute cystitis with hematuria N30.01 and Severe episode of recurrent major depressive disorder, without psychotic features F33.2 [facility] [id number] [place] [address] 35402- 7996 14 Jun, 2014 [facility] [id number] [place] [address] 49633- 1750 Jun, [facility] [id number] [place] [address] 09605- 5637 May, [facility] [address] [place] [address] 18142- 2541 Jan, [facility] [id number] [place] [address] 10477- 8676 Feb, [facility] [address], [place] [address]- 2540 Feb, [facility] [address] [place] [address] 51371 2546 16 Jan, 2010 [facility] [address], [place] [address] 2546 Feb, [facility] [id number] [place] [address] 79352 2546 Jan, [facility] [address], [place] [address]- 2546 Jan, [facility] [address] [place] [address] 71126- 2546 Jan, [facility] [address] [facility] [id number] [address] 76[address] 14 Dec, 2008 IMMUNIZATIONS No Known Immunizations SOCIAL HISTORY Never Assessed REASON FOR VISIT Lab (walk-in) PLAN OF CARE VITAL SIGNS MEDICATIONS No Known Medications RESULTS No Results PROCEDURES Procedure Date Ordered Result Body Site LAB NOT BILLED BY [facility] Jan 05, 2017 VENIPUNCT, ROUTINE* Jan 05, 2017 INSTRUCTIONS MEDICATIONS ADMINISTERED No Known Medications MEDICAL (GENERAL) HISTORY Type Description Date Medical History endometriosis 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
--- OUTSIDE RECORDS SUMMARY | 2017-08-16 06:19 | XMS REPORT ---
Author Author AI PARNELL [facility] Address Unknown Care Team Providers Care Decorator Consultant Name Role Phone AI PARNELL Unavailable PROBLEMS Type Condition ICD9-CM Code [id number] Code Onset Dates Condition Status SNOMED Code Problem Severe episode of recurrent major depressive disorder, without psychotic features F33.2 Active 71485058 Problem PTSD (post-traumatic stress disorder) F43.10 Active 45028072 Problem Bipolar 2 disorder F31.81 Active 03173713 Problem Cannabis use disorder, moderate, dependence F12.20 Active 93237916 Problem Dysmenorrhea N94.6 Active 370180399 Problem Methamphetamine use disorder, 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 Active 563441913 Problem Methamphetamine use disorder, moderate, 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 Active 40612196 Problem Cannabis use disorder, mild, abuse F12.10 Active 82524068 Problem High risk medication use Z79.899 Active 934092980 ALLERGIES No Known Allergies ENCOUNTERS Encounter Location Date Diagnosis [place] [address] [place] [address] 66703- 4911 July, Bipolar 2 disorder F31.81 ; PTSD (post-traumatic stress disorder) F43.10 ; Methamphetamine use disorder, 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 and Cannabis use disorder, moderate, dependence F12.20 [place] [address] [place] [id number] [place] [address] 92856- 7924 Jun, [place] [address], [place] [address] 5013 May, Bipolar 2 disorder F31.81 ; PTSD (post-traumatic stress disorder) F43.10 ; Methamphetamine use disorder, 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 and Cannabis use disorder, moderate, dependence F12.20 [place] [id number] [address]- 0520 May, [place] [address] [place] [address] [address]- 4361 May, Well woman exam with routine gynecological exam Z01.419 ; Dysmenorrhea N94.6 ; Breast cancer screening Z12.31 and Poor dentition K08.9 [place] [address] [place] [id number] [place] [address] 07525- 6021 May, [place] [address] [place] [id number] [place] [address] 029208- 2671 Feb, Bipolar 2 disorder F31.81 ; PTSD (post-traumatic stress disorder) F43.10 ; Methamphetamine use disorder, 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 and Cannabis use disorder, mild, abuse F12.10 [place] [address] [place] [id number] [place] [address] 10627- 7297 Feb, [place] [address] [place] [id number] [place] [address] 65780- 9218 Jan, High risk medication use Z79.899 [place] [address] [place] [place] [address] 44234- 8232 Jan, Bipolar 2 disorder F31.81 ; PTSD (post-traumatic stress disorder) F43.10 ; Methamphetamine use disorder, moderate, 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 and Cannabis use disorder, mild, abuse F12.10 [place] [address] [place] [address] [place] [address] 63407- 9199 16 Jan, 2017 Bipolar 2 disorder F31.81 ; PTSD (post-traumatic stress disorder) F43.10 ; Methamphetamine use disorder, moderate, 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 and Cannabis use disorder, mild, abuse F12.10 [place] [address] [place] [address] 87508- 4875 16 Jan, 2017 High risk medication use Z79.899 ; Cannabis use disorder, mild, abuse F12.10 ; Methamphetamine use disorder, moderate, 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 ; PTSD (post-traumatic stress disorder) F43.10 and Bipolar 2 disorder F31.81 [place] [address] [place] [id number] [place] [address] Jan, Bipolar 2 disorder F31.81 ; PTSD (post-traumatic stress disorder) F43.10 ; Methamphetamine use disorder, moderate, 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 and Cannabis use disorder, mild, abuse F12.10 [facility] [address] [place] [address]30 Jan, High risk medication use Z79.899 [facility] [address] [place] [address]- 664 Jan, High risk medication use Z79.899 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 [address] 79310 -9319 Dec, Acute midline low back pain without sciatica M54.5 [facility] [address] 58152- 4667 Dec, Bipolar 2 disorder F31.81 [facility] [address] [id number] 26 Nov, 2016 Dental examination Z01.20 [facility] [id number], [place] [address] 2546 25 Nov, 2016 Dental examination Z01.20 [facility] [address], [place] [address] 2541 25 Nov, 2016 Urine discoloration R39.89 ; Acute cystitis with hematuria N30.01 and Severe episode of recurrent major depressive disorder, without psychotic features F33.2 [facility] [id number] [address] 2546 14 Jun, 2014 [facility] [id number] [place] [address] 03780 2546 13 Jun, 2014 [facility] [id number] [place] [address] 86651- 6546 May, [facility] [id number] [place] [address] 44962 2545 Jan, [facility] [address], [place] [address] 2546 Feb, [facility] [address] [place] [address] 19479 2546 Feb, [facility] [address], [place] [address] 2546 16 Jan, 2010 [facility] [address], [place] [address] 2546 Feb, [facility] [address], [place] [address] 2546 Jan, [facility] [id number], [place] [address] 2546 Jan, [facility] [address], [place] [address] 2546 Jan, [facility] [address] [id number] [place] [address] [place] [id number] 14 Dec, 2008 IMMUNIZATIONS No Known Immunizations SOCIAL HISTORY Never Assessed REASON FOR VISIT linda PLAN OF CARE Activity Details Follow Up prn Reason:#5-rct/crown VITAL SIGNS Blood pressure systolic 122 mmHg 2016-11-28 Blood pressure diastolic 78 mmHg 2016-11-28 MEDICATIONS Medication Instructions Dosage Frequency Start Date End Date Duration Status Ciprofloxacin HCl 500 mg Orally Twice a day 1 tablet 12h 25 Nov, 2016 Dec, 07 days Active Amoxicillin 500 MG Orally three times a day 1 tablet 8h 7 days Active RESULTS No Results PROCEDURES Procedure Date Ordered Result Body Site LTD ORAL EVALUATION - PROBLEM FOCUS Nov 28, 2016 INSTRUCTIONS MEDICATIONS ADMINISTERED No Known Medications MEDICAL (GENERAL) HISTORY Type Description Date Medical History endometriosis 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
--- OUTSIDE RECORDS SUMMARY | 2017-08-16 06:19 | XMS REPORT ---
Author Author ÁNGEL SYDNI Organization [facility] Address [address] [place] [address] Care Team Providers Care Polisher And Buffer Name Role Phone NIURKAANNABELLA ONEILA Unavailable PROBLEMS Type Condition ICD9-CM Code VSE48-LF Code Onset Dates Condition Status SNOMED Code Problem Severe episode of recurrent major depressive disorder, without psychotic features F33.2 Active 61305900 Problem PTSD (post-traumatic stress disorder) F43.10 Active 33355789 Problem Bipolar 2 disorder F31.81 Active 08819057 Problem Cannabis use disorder, moderate, dependence F12.20 Active 81141444 Problem Dysmenorrhea N94.6 Active 792019624 Problem Methamphetamine use disorder, 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 Active 157808300 Problem Methamphetamine use disorder, moderate, 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 Active 69053037 Problem Cannabis use disorder, mild, abuse F12.10 Active 29505013 Problem High risk medication use Z79.899 Active 066276287 ALLERGIES No Information ENCOUNTERS Encounter Location Date Diagnosis [facility] [address] [place] [address] 06663- 5153 July, Bipolar 2 disorder F31.81 ; PTSD (post-traumatic stress disorder) F43.10 ; Methamphetamine use disorder, 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 and Cannabis use disorder, moderate, dependence F12.20 [facility] [address] [place] [address] 54779- 9858 Jun, [facility] [address] [place] [id number] [place] [address] 35005- 7759 May, Bipolar 2 disorder F31.81 ; PTSD (post-traumatic stress disorder) F43.10 ; Methamphetamine use disorder, 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 and Cannabis use disorder, moderate, dependence F12.20 [facility] [address] [place] [address] 88773- 1239 May, [place] [address], [place] [address]- 3055 May, Well woman exam with routine gynecological exam Z01.419 ; Dysmenorrhea N94.6 ; Breast cancer screening Z12.31 and Poor dentition K08.9 [place] [address], [place] [address]- 7652 May, [place] [address] [place] [id number] [place] [address] 99101- 6668 Feb, Bipolar 2 disorder F31.81 ; PTSD (post-traumatic stress disorder) F43.10 ; Methamphetamine use disorder, 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 and Cannabis use disorder, mild, abuse F12.10 [place] [address] [place] [address] 39500- 2564 Feb, [place] [address] [place] [id number] [place] [address] 61686- 0492 Jan, High risk medication use Z79.899 [place] [address] [place] [address] [id number] [place] [address] 05918- 6224 Jan, Bipolar 2 disorder F31.81 ; PTSD (post-traumatic stress disorder) F43.10 ; Methamphetamine use disorder, moderate, 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 and Cannabis use disorder, mild, abuse F12.10 [place] [address] [place] [address] 02815- 7399 Jan, Bipolar 2 disorder F31.81 ; PTSD (post-traumatic stress disorder) F43.10 ; Methamphetamine use disorder, moderate, 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 and Cannabis use disorder, mild, abuse F12.10 [place] [address] [place] [address] 31960- 1965 Jan, High risk medication use Z79.899 ; Cannabis use disorder, mild, abuse F12.10 ; Methamphetamine use disorder, moderate, 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 ; PTSD (post-traumatic stress disorder) F43.10 and Bipolar 2 disorder F31.81 [place] [id number] [place] [address] 22977- 8709 Jan, Bipolar 2 disorder F31.81 ; PTSD (post-traumatic stress disorder) F43.10 ; Methamphetamine use disorder, moderate, 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 and Cannabis use disorder, mild, abuse F12.10 [place] [address] [place] [id number] [place] [address] 04014- 0932 Jan, High risk medication use Z79.899 [place] [address] 17971- 3778 Jan, High risk medication use Z79.899 [facility] [address] [place] [address] 435490 -3748 Jan, Viral pharyngitis J02.[address] 59267- 9855 Jan, High risk medication use Z79.899 [place] [address] 91309- 9845 Dec, High risk medication use Z79.899 ; PTSD (post-traumatic stress disorder) F43.10 ; Bipolar 2 disorder F31.81 ; Methamphetamine use disorder, moderate, 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 and Cannabis use disorder, mild, abuse F12.10 [place] [id number] [place] [address] 90589- 8840 Dec, Tailbone injury, subsequent encounter S39.92XD and Encounter for immunization Z23 [address] 14174- 3766 Dec, Bipolar 2 disorder F31.81 and PTSD (post-traumatic stress disorder) F43.10 [facility] [address] [place] [address] 50559 -3632 Dec, Acute midline low back pain without sciatica M54.[address] 06302- 9588 Dec, Bipolar 2 disorder F31.81 [facility] [address] [id number] 26 Nov, 2016 Dental examination Z01.20 [facility] [address] [place] [address] 347937- 2666 25 Nov, 2016 Dental examination Z01.20 [facility] [address], [place] [address]- 3768 25 Nov, 2016 Urine discoloration R39.89 ; Acute cystitis with hematuria N30.01 and Severe episode of recurrent major depressive disorder, without psychotic features F33.2 [facility] [address] [place] [id number] [place] [address] 59855- 7276 14 Jun, 2014 [facility] [address] [place] [address] [id number] [place] [address] 06952- 6971 Jun, [facility] [address] [id number] [place] [address] 25498- 3867 May, [facility] [address] [place] [address] 02666- 2543 Jan, [facility] [address] [place] [id number] [place] [address] 08802- 1226 Feb, [facility] [address], [place] [address]- 2542 Feb, [facility] [address] [place] [address] 70879 2546 16 Jan, 2010 [facility] [address], [place] [address] 2546 Feb, [facility] [address] [id number] [place] [address] 32756 2546 Jan, [facility] [address], [place] [address]- 2546 Jan, [facility] [address] [place] [address] 27869- 2546 Jan, [facility] [address] [facility] [id number] [place] [address]- 8274 14 Dec, 2008 IMMUNIZATIONS No Known Immunizations SOCIAL HISTORY Never Assessed REASON FOR VISIT f/u PLAN OF CARE Activity Details Follow Up 6 Weeks Reason: VITAL SIGNS MEDICATIONS Medication Instructions Dosage Frequency Start Date End Date Duration Status HydrOXYzine HCl 25 MG Orally three times a day as needed for anxiety 0.5-2 tablets Feb, 30 day(s) Active Latuda 60 MG Orally every dinner time 1 tablet Dec, Active RESULTS No Results PROCEDURES Procedure Date Ordered Result Body Site [facility] VISIT ESTABLISHED PATIENT Feb 22, 2017 INSTRUCTIONS MEDICATIONS ADMINISTERED No Known Medications MEDICAL (GENERAL) HISTORY Type Description Date Medical History endometriosis 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
--- OUTSIDE RECORDS SUMMARY | 2017-08-16 06:19 | XMS REPORT ---
Author Author DEBORAH MONTEZ Organization [facility] Address [address] [place] [address] Care Team Providers Care Emergency Care Attendant Name Role Phone DEBORAH MONTEZ Unavailable PROBLEMS Type Condition ICD9-CM Code [id number] Code Onset Dates Condition Status SNOMED Code Problem Severe episode of recurrent major depressive disorder, without psychotic features F33.2 Active 01103039 Problem PTSD (post-traumatic stress disorder) F43.10 Active 01251956 Problem Bipolar 2 disorder F31.81 Active 78971601 Problem Cannabis use disorder, moderate, dependence F12.20 Active 20471756 Problem Dysmenorrhea N94.6 Active 511605859 Problem Methamphetamine use disorder, 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 Active 090013161 Problem Methamphetamine use disorder, moderate, 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 Active 24006214 Problem Cannabis use disorder, mild, abuse F12.10 Active 14555244 Problem High risk medication use Z79.899 Active 748838733 ALLERGIES No Information ENCOUNTERS Encounter Location Date Diagnosis [place] [address] [place] [address] 48156- 3661 July, Bipolar 2 disorder F31.81 ; PTSD (post-traumatic stress disorder) F43.10 ; Methamphetamine use disorder, 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 and Cannabis use disorder, moderate, dependence F12.20 [facility] [address] [place] [address] 41241- 0464 Jun, [facility] [address] [place] [address] 06990- 3748 May, Bipolar 2 disorder F31.81 ; PTSD (post-traumatic stress disorder) F43.10 ; Methamphetamine use disorder, 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 and Cannabis use disorder, moderate, dependence F12.20 [facility] [address] [place] [address] 96055- 0493 May, [place] [address] [address] May, Well woman exam with routine gynecological exam Z01.419 ; Dysmenorrhea N94.6 ; Breast cancer screening Z12.31 and Poor dentition K08.9 [place] [address] [address] May, [place] [address] [place] [id number] [place] [address] 56309- 5591 Feb, Bipolar 2 disorder F31.81 ; PTSD (post-traumatic stress disorder) F43.10 ; Methamphetamine use disorder, 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 and Cannabis use disorder, mild, abuse F12.10 [place] [address] [place] [id number] [place] [address] 16754- 3534 Feb, [place] [address] [place] [id number] [place] [address] 44811- 5665 Jan, High risk medication use Z79.899 [place] [address] [place] [id number] [place] [address] 69490- 3343 Jan, Bipolar 2 disorder F31.81 ; PTSD (post-traumatic stress disorder) F43.10 ; Methamphetamine use disorder, moderate, 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 and Cannabis use disorder, mild, abuse F12.10 [place] [address] [address] 7572 Jan, Bipolar 2 disorder F31.81 ; PTSD (post-traumatic stress disorder) F43.10 ; Methamphetamine use disorder, moderate, 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 and Cannabis use disorder, mild, abuse F12.10 [place] [address] [place] [address] 35968- 4958 Jan, High risk medication use Z79.899 ; Cannabis use disorder, mild, abuse F12.10 ; Methamphetamine use disorder, moderate, 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 ; PTSD (post-traumatic stress disorder) F43.10 and Bipolar 2 disorder F31.81 [place] [address] [place] [id number] [place] [address] 28089- 9290 Jan, Bipolar 2 disorder F31.81 ; PTSD (post-traumatic stress disorder) F43.10 ; Methamphetamine use disorder, moderate, 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 and Cannabis use disorder, mild, abuse F12.10 [place] [address] [place] [address] [place] [address] 78313- 3566 Jan, High risk medication use Z79.899 [place] [address] 667054- 8597 Jan, High risk medication use Z79.899 [facility] 095669 -1618 Jan, Viral pharyngitis J02.9 [place] [address] 71444- 3057 Jan, High risk medication use Z79.899 [place] [address] 50807- 9471 Dec, High risk medication use Z79.899 ; PTSD (post-traumatic stress disorder) F43.10 ; Bipolar 2 disorder F31.81 ; Methamphetamine use disorder, moderate, 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 and Cannabis use disorder, mild, abuse F12.10 [place] [address] [place] [id number] [place] [address] 72606- 3428 Dec, Tailbone injury, subsequent encounter S39.92XD and Encounter for immunization Z23 [place] [address] [place] [id number] [place] [address] 29920- 4830 Dec, Bipolar 2 disorder F31.81 and PTSD (post-traumatic stress disorder) F43.10 [facility] [address] 50859 -0742 Dec, Acute midline low back pain without sciatica M54.5 [place] [address] 36577- 5774 Dec, Bipolar 2 disorder F31.81 [facility] [address] [id number] [id number] 26 Nov, 2016 Dental examination Z01.20 [facility] [address] [place] [id number] [place] [address] 20706- 1916 25 Nov, 2016 Dental examination Z01.20 [facility] [address] [place] [id number] [place] [address] 23376- 5174 25 Nov, 2016 Urine discoloration R39.89 ; Acute cystitis with hematuria N30.01 and Severe episode of recurrent major depressive disorder, without psychotic features F33.2 [facility] [address] [place] [id number] [place] [address] 94714- 6016 14 Jun, 2014 [facility] [address] [place] [id number] [place] [address] 05972- 8770 13 Jun, 2014 [facility] [address] [place] [id number] [place] [address] 06150- 1036 May, [facility] [address] [place] [id number] [place] [address] 18941- 4844 Jan, [facility] [address] [place] [id number] [place] [address] 14810- 2272 Feb, [facility] [address] [place] [id number] [place] [address] 92903- 2544 Feb, [facility] [address] [place] [address] 93629 2546 16 Jan, 2010 [facility] [address] [place] [address] 92779- 2546 Feb, [facility] [address] [place] [id number] [place] [address] 16937 2546 Jan, [facility] [address] [place] [id number] [place] [address] 89616- 2546 Jan, [facility] [address] [place] [address] 45055- 2546 Jan, [facility] [address] [facility] [id number] [place] [address] 34[address] 14 Dec, 2008 IMMUNIZATIONS No Known Immunizations SOCIAL HISTORY Never Assessed REASON FOR VISIT f/u, Depression and PTSD. 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
--- OUTSIDE RECORDS SUMMARY | 2017-08-16 06:19 | XMS REPORT ---
Author Author ALDO GRAHAM [facility] IN [facility] Address [address] [place] [address] Care Team Providers Care Intranet Developer Name Role Phone SANTOS ALDO Unavailable PROBLEMS Type Condition ICD9-CM Code EMH56-MN Code Onset Dates Condition Status SNOMED Code Problem Severe episode of recurrent major depressive disorder, without psychotic features F33.2 Active 51753320 Problem PTSD (post-traumatic stress disorder) F43.10 Active 96666956 Problem Bipolar 2 disorder F31.81 Active 07123987 Problem Cannabis use disorder, moderate, dependence F12.20 Active 83117566 Problem Dysmenorrhea N94.6 Active 981235596 Problem Methamphetamine use disorder, 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 [address] [place] [id number] [address] Jun, 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 and Cannabis use disorder, mild, abuse F12.10 [place] [address] [place] [id number] [place] [address] 57990- 7246 Feb, [place] [address] [place] [id number] [place] [address] 96977- 0920 Jan, High risk medication use Z79.899 [place] [address] [place] [id number] [place] [address] 05009- 4665 Jan, Bipolar 2 disorder F31.81 ; PTSD (post-traumatic stress disorder) F43.10 ; Methamphetamine use disorder, moderate, 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 and Cannabis use disorder, mild, abuse F12.10 [place] [address] [place] [address] 78266- 8459 Jan, Bipolar 2 disorder F31.81 ; PTSD (post-traumatic stress disorder) F43.10 ; Methamphetamine use disorder, moderate, 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 and Cannabis use disorder, mild, abuse F12.10 [place] [address] [place] [address] 51035- 3327 Jan, High risk medication use Z79.899 ; Cannabis use disorder, mild, abuse F12.10 ; Methamphetamine use disorder, moderate, 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 ; PTSD (post-traumatic stress disorder) F43.10 and Bipolar 2 disorder F31.81 [address] [place] [address] 46226- 5908 Jan, Bipolar 2 disorder F31.81 ; PTSD (post-traumatic stress disorder) F43.10 ; Methamphetamine use disorder, moderate, 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 and Cannabis use disorder, mild, abuse F12.10 [place] [address] [place] [id number] [place] [address] 99400- 3582 Jan, High risk medication use Z79.899 [place] [address] 41539- 6638 Jan, High risk medication use Z79.899 [facility] [address] [place] [address] 010920 -3031 Jan, Viral pharyngitis J02.9 [place] [address] 47645- 5248 Jan, High risk medication use Z79.899 [place] [address] 93745- 2930 Dec, High risk medication use Z79.899 ; PTSD (post-traumatic stress disorder) F43.10 ; Bipolar 2 disorder F31.81 ; Methamphetamine use disorder, moderate, 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 [address] 21657 -9237 Dec, Acute midline low back pain without sciatica M54.[address] 90236- 7219 Dec, Bipolar 2 disorder F31.81 [facility] [address] [id number] [id number] 26 Nov, [address] [facility] [address] [place] [address] 20545- 6026 25 Nov, [address] [facility] [address] [place] [address] 20229- 2096 25 Nov, 2016 Urine discoloration R39.89 ; Acute cystitis with hematuria N30.01 and Severe episode of recurrent major depressive disorder, without psychotic features F33.2 [facility] [address] [place] [id number] [place] [address] 38190- 3106 14 Jun, 2014 [facility] [address] [place] [id number] [place] [address] 26228- 1099 Jun, [facility] [address] [place] [id number] [place] [address] 35489- 7312 May, [facility] [address] [place] [address] 20036- 2548 Jan, [facility] [address] [place] [id number] [place] [address] 37403 2546 Feb, [facility] [address], [place] [address]- 2540 Feb, [facility] [address] [place] [address] 29842 2546 16 Jan, 2010 [facility] [address] [place] [address] 49765 2546 Feb, [facility] [address] [place] [id number] [place] [address] 63748 2546 30 Jan, 2009 [facility] [address], [place] [address] 2546 30 Jan, [address] [facility] [address] [place] [address] 18948 2546 Jan, [facility] [address] [facility] [id number] [place] [address]- 7045 Dec, IMMUNIZATIONS No Known Immunizations SOCIAL HISTORY Never Assessed REASON FOR VISIT ear/neck pain- started 2 days ago, pain on left side of head and neck, sore throat- Marito Escobedo RN, has been out of [facility] for same amount of time- Marito Escobedo RN PLAN OF CARE Activity Details Follow Up prn Reason: VITAL SIGNS Height 66 in 2017-01-05 Weight 145 lbs 2017-01-05 Temperature 98.0 degrees Fahrenheit 2017-01-05 Heart Rate 80 bpm 2017-01-05 Respiratory Rate 18 2017-01-05 BMI 23.40 kg/m2 2017-01-05 Blood pressure systolic 114 mmHg 2017-01-05 Blood pressure diastolic 78 mmHg 2017-01-05 MEDICATIONS No Known Medications RESULTS No Results PROCEDURES Procedure Date Ordered Result Body Site [facility] ESTABL[facility] PATIENT Jan 05, 2017 INSTRUCTIONS MEDICATIONS ADMINISTERED No Known Medications MEDICAL (GENERAL) HISTORY Type Description Date Medical History endometriosis 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
--- OUTSIDE RECORDS SUMMARY | 2017-08-16 06:19 | XMS REPORT ---
Author Author KUSUM IRIZARRY [facility] Address [address] [place] [address] Care Team Providers Care Puppy Walker Name Role Phone KUSUM IRIZARRY Unavailable PROBLEMS Type Condition ICD9-CM Code APN50-PP Code Onset Dates Condition Status SNOMED Code Problem Severe episode of recurrent major depressive disorder, without psychotic features F33.2 Active 12263359 Problem PTSD (post-traumatic stress disorder) F43.10 Active 18163738 Problem Bipolar 2 disorder F31.81 Active 57721757 Problem Cannabis use disorder, moderate, dependence F12.20 Active 07149161 Problem Dysmenorrhea N94.6 Active 905175718 Problem Methamphetamine use disorder, 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 Active 756109735 Problem Methamphetamine use disorder, moderate, 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 Active 65132240 Problem Cannabis use disorder, mild, abuse F12.10 Active 43218231 Problem High risk medication use Z79.899 Active 693021042 ALLERGIES No Known Allergies ENCOUNTERS Encounter Location Date Diagnosis [place] [address] [place] [address] 61762- 5778 July, Bipolar 2 disorder F31.81 ; PTSD (post-traumatic stress disorder) F43.10 ; Methamphetamine use disorder, 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 and Cannabis use disorder, moderate, dependence F12.20 [place] [address] [place] [address] 35268- 9778 Jun, [place] [address] [place] [id number] [place] [address] 71914- 3377 May, Bipolar 2 disorder F31.81 ; PTSD (post-traumatic stress disorder) F43.10 ; Methamphetamine use disorder, 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 and Cannabis use disorder, moderate, dependence F12.20 [place] [address] [place] [id number] [place] [address] 04346- 5328 May, [place] [address] [place] [address] 50823- 6863 May, Well woman exam with routine gynecological exam Z01.419 ; Dysmenorrhea N94.6 ; Breast cancer screening Z12.31 and Poor dentition K08.9 [place] [address] [place] [id number] [place] [address] 58690- 4923 May, [place] [address] [place] [id number] [place], [place] [address]- 2327 Feb, Bipolar 2 disorder F31.81 ; PTSD (post-traumatic stress disorder) F43.10 ; Methamphetamine use disorder, 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 and Cannabis use disorder, mild, abuse F12.10 [place] [address] [place] [id number] [place] [address] 13591- 7564 Feb, [place] [id number] [place] [address] 40350- 0967 Jan, High risk medication use Z79.899 [place] [address] [place] [id number] [place] [address] 85302- 0435 Jan, Bipolar 2 disorder F31.81 ; PTSD (post-traumatic stress disorder) F43.10 ; Methamphetamine use disorder, moderate, 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 and Cannabis use disorder, mild, abuse F12.10 [place] [address] [place] [address] 81786- 3495 Jan, Bipolar 2 disorder F31.81 ; PTSD (post-traumatic stress disorder) F43.10 ; Methamphetamine use disorder, moderate, 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 and Cannabis use disorder, mild, abuse F12.10 [place] [id number] [place] [address] 46996- 1479 Jan, High risk medication use Z79.899 ; Cannabis use disorder, mild, abuse F12.10 ; Methamphetamine use disorder, moderate, 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 ; PTSD (post-traumatic stress disorder) F43.10 and Bipolar 2 disorder F31.[address] [place] [address] 28826- 0239 Jan, Bipolar 2 disorder F31.81 ; PTSD (post-traumatic stress disorder) F43.10 ; Methamphetamine use disorder, moderate, 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 and Cannabis use disorder, mild, abuse F12.10 [place] [address] [place] [id number] [place] [address] 70667- 3944 Jan, High risk medication use Z79.899 [place] [address] [place] [id number] [place] [address] 347753- 0513 Jan, High risk medication use Z79.899 [facility] [address] [place] [address] 82116 -9731 Jan, Viral pharyngitis J02.9 [place] [id number] [place] [address] 82057- 5492 Jan, High risk medication use Z79.899 [place] [address] [place] [id number] [place] [address] 18584- 6252 Dec, High risk medication use Z79.899 ; PTSD (post-traumatic stress disorder) F43.10 ; Bipolar 2 disorder F31.81 ; Methamphetamine use disorder, moderate, 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 and Cannabis use disorder, mild, abuse F12.10 [place] [id number] [place] [address] 54375- 3690 Dec, Tailbone injury, subsequent encounter S39.92XD and Encounter for immunization Z23 [place] [id number] [place] [address] 74468- 3044 Dec, Bipolar 2 disorder F31.81 and PTSD (post-traumatic stress disorder) F43.10 [facility] [address] [place] [id number] [place] [address] 73687 -0802 Dec, Acute midline low back pain without sciatica M54.[address] 68198- 5106 Dec, Bipolar 2 disorder F31.81 [facility] [address] [id number] 26 Nov, 2016 Dental examination Z01.20 [facility] [address] [place] [id number] [place] [address] 402910- 8979 25 Nov, 2016 Dental examination Z01.20 [facility] [address] [place] [id number] [place] [address] 932368- 3884 25 Nov, 2016 Urine discoloration R39.89 ; Acute cystitis with hematuria N30.01 and Severe episode of recurrent major depressive disorder, without psychotic features F33.2 [facility] [address] [place] [id number] [place] [address] 750214- 3972 14 Jun, 2014 [facility] [address] [place] [id number] [place] [address] 25633- 8467 Jun, [facility] [address] [place] [id number] [place] [address] 55976- 1063 May, [facility] [address] [place] [id number] [place] [address] 89990- 1513 Jan, [facility] [address] [place] [id number] [place] [address] 28285- 7061 Feb, [facility] [address] [place] [id number] [place] [address] 89302- 6571 Feb, [facility] [address] [place] [id number] [place] [address] 95306- 2548 16 Jan, 2010 [facility] [address] [place] [address] 78017- 2547 Feb, [facility] [address] [place] [id number] [place] [address] 80679- 8516 Jan, [facility] [address] [place] [id number] [place] [address] 890567- 7801 Jan, [facility] [address] [place] [id number] [place] [address] 117621- 4458 Jan, [facility] [address] [facility] [id number] [place] [id number]15 Dec, IMMUNIZATIONS No Known Immunizations SOCIAL HISTORY Never Assessed REASON FOR VISIT refer. fam. prac. 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
[2017-08-16 06:25] VITALS: BP 104/65
[2017-08-16] MEDS ORDERED: SEVOFLURANE (ULTANE) 15 ML INHAL SOLN ONE ×6 (06:36→08:49)
[2017-08-16] MEDS ORDERED: DEXAMETHASONE 10 MG/ML (DECADRON) 1 ML VIAL ONE ×2 (06:36→06:40)
[2017-08-16] MEDS ORDERED: HURRICAINE EXT TUBE (BENZOCAINE) ONE ×2 (06:36→06:40)
[2017-08-16] MEDS ORDERED: MIDAZOLAM 2 MG/2 ML (VERSED) VIAL ONE (06:36)
[2017-08-16] MEDS ORDERED: proPOfol 200 MG/20 ML (DIPRIVAN) VIAL IV ONE ×2 (06:36→06:40)
[2017-08-16] MEDS ORDERED: LIDOCAINE PF 2% 5 ML (XYLOCAINE) VIAL ONE ×2 (06:36→06:41)
[2017-08-16] MEDS ORDERED: LACTATED RINGERS 1,000 ML IV ONE ×3 (06:36→07:18)
[2017-08-16] MEDS ORDERED: fentaNYL INJECTION 100 MCG/2 ML AMP ONE ×2 (06:37→06:41)
[2017-08-16] MEDS ORDERED: BUPIVACAINE 0.25% 30 ML (SENSORCAINE) VIAL ONE (06:46)
[2017-08-16] MEDS ORDERED: ceFAZolin 1,000 MG (ANCEF) VIAL ONE (06:48)
[2017-08-16] MEDS ORDERED: NS (IVPB) 50 ML ONE (06:48)
[2017-08-16] MEDS ORDERED: metroNIDAZOLE 500MG/100ML IVPB 100 ML ONE (06:49)
[2017-08-16] MEDS: LACTATED RINGERS 1,000 ML IV PRN ×2 (07:10→08:19)
--- NOTE | 2017-08-16 07:24 | History & Physical-Surgical ---
HPO-Surgical History of Present Illness Chief Complaint: This 41 yo female is here for scheduled RATLH w possible BSO due to chronic pelvic pain, fibroid uterus, and hx of recurrent cervical dysplasia. Nothing has changed in her health history since last seen. Diagnosis/Surgical Indication: Recurrent cervical dysplasia, CPP, Fibroid uterus Procedure: RATLH w/ poss BSO Weight (Pounds): 142 Weight (Ounces): 0.0 Height (Feet): 5 Height (Inches): 5.00 Allergies and Home Medications Allergies Coded Allergies: No Known Drug Allergies (Unverified , 08/09/17) Home Medications Clonidine HCl 0.1 Mg Tablet, 0.1 MG PO TID, (Reported) Lurasidone HCl 40 Mg Tablet, 40 MG PO HS, (Reported) Oxcarbazepine 300 Mg Tablet, 300 MG PO BID, (Reported) Patient Home Medication List Home Medication List Reviewed: Yes Past Quouegn-Yhrxaj-Pnsrih Hx Patient Social History Type Used: Cigarettes Recent Hopitalizations: No Seasonal Allergies Seasonal Allergies: Yes Surgeries Yes (DXLS, LEEP, VAGINAL TEAR REPAIR, NASAL FX) Respiratory No (POSSIBLE ASTHMA DOESN'T REQUIRE INHALERS) Cardiovascular No Neurological Yes (QUESTIONABLE SEIZURE PER PT) Genitourinary No Gastrointestinal No Musculoskeletal Yes Chronic Back Pain Endocrine History of Endocrine Disorders: No HEENT History of HEENT Disorders: No Cancer Yes Cervical Psychosocial History of Psychiatric Problem: Yes Behavioral Health Disorders: Anxiety, Bipolar, Depression Integumentary History of Skin or Integumenta: No Blood Transfusions History of Blood Disorders: No Family Medical History Family Hx: Patient reports no known family medical history. Exam Vital Signs Capillary Refill : Labs Laboratory Tests Test 08/16/17 06:15 Range/Units Urine Test NEGATIVE NEGATIVE General Appearance: Alert, Oriented X3 HEENT: Atraumatic Respiratory: Clear to Auscultation Cardiovascular: Regular Rate Abdominal: Normal Bowel Sounds Extremities: No Edema Skin: No Significant Lesion Neuro: Normal Speech Psych/Mental Status: Mental Status NL, Mood NL Assessment/Plan Assessment and Plan DIagnosis: Chronic pelvic pain Fibroid uterus Hx of recurrent cervical dysplasia P: RATLH w/ BSO see preoperative visit in office for complete details pertaining to review of procedure/risk/alternatives. This was reviewed with the patient today in the preoperative holding area. Admission Diagnosis Chronic pelvic pain Fibroid uterus Hx of recurrent cervical dysplasia Admission Status: Observation JOSSELIN ESTRELLA 14, 2018 7:24 am
[2017-08-16] MEDS ORDERED: LACTATED RINGERS 1,000 ML IV SCH ×2 (07:25→10:30)
--- NOTE | 2017-08-16 07:27 | Discharge Inst-Women's Service ---
Discharge Inst-Women's Serv Depart Medication/Instructions New, Converted or Re-Newed RX: RX on Chart Consults/Follow Up Additional Follow Up: Yes Orders/Referrals Dr. Levine in 7-10 days and in 8 weeks Activity Activity: Activity as Tolerated Driving Instructions: No Driving for 1 Week (do not drive while taking narcotic pain med) NO SMOKING: NO SMOKING Nothing Inside Vagina: No Douching, No Gregory, No Tampons Diet Discharge Diet: No Restrictions Symptoms to Report to : Bleeding Excessive, Pain Increased, Fever Over 101 Degrees F, Vaginal Bleeding Increase, Questions/Concerns For Any Problems or Questions: Contact Your Physician Skin/Wound Care Infection Signs and Symptoms: Increased Redness, Foul Odor of Wound, Increased Drainage, Skin Itchy or Has a Rash, Increased Swelling, Temperature Above 101 F Operative Area Clean and Dry: Keep Incision Clean/Dry Stitches/Luis/Dermabond: Dermabond, Care of Stitches Bathing Instructions: JOSSELIN Pascual DO Aug 16, 2017 7:27 am
[2017-08-16] MEDS ORDERED: SIME80TA16 PO (07:29)
[2017-08-16] MEDS ORDERED: HYDR-34 PO (07:29)
[2017-08-16] MEDS ORDERED: IBUP-844 PO (07:29)
[2017-08-16] MEDS ORDERED: DOCU100C37 PO (07:29)
[2017-08-16] MEDS ORDERED: CHLORASEPTIC LOZENGE MM PRN ×2 (07:30→10:30)
[2017-08-16] MEDS ORDERED: ceFAZolin INJECTION 1,000 MG in NS (IVPB) 50 ML IV ONE (07:30)
[2017-08-16] MEDS ORDERED: ZOLPIDEM 5 MG (AMBIEN) TAB PO PRN ×2 (07:30→10:30)
[2017-08-16] MEDS ORDERED: DOCUSATE SODIUM 100 MG (COLACE) CAP PO PRN ×2 (07:30→10:30)
[2017-08-16] MEDS ORDERED: ANTACID SUSP 30 ML UDC (MYLANTA) PO PRN ×2 (07:30→10:30)
[2017-08-16] MEDS ORDERED: ONDANSETRON 4 MG/2 ML (SDV) Z0FRAN IV PRN ×2 (07:30→10:30)
[2017-08-16] MEDS ORDERED: BUPIVACAINE 0.25% 30 ML (SENSORCAINE) VIAL INJ ONE (07:30)
[2017-08-16] MEDS ORDERED: SIMETHICONE 80 MG (MYLICON) CHEW PO PRN ×2 (07:30→10:30)
[2017-08-16] MEDS ORDERED: HYDROcodone/APAP 7.5 MG/325 MG (LORTAB, LORCET PLUS) TABLET PO PRN ×2 (07:30→10:30)
[2017-08-16] MEDS ORDERED: metroNIDAZOLE 500MG/100ML IVPB 100 ML IV ONE (07:30)
[2017-08-16] MEDS ORDERED: ESMOLOL 100 MG/10 ML (BREVIBLOC) VIAL ONE (08:10)
[2017-08-16] MEDS ORDERED: morphine PF (DURAMORPH) 10 MG/10 ML AMP ONE (08:33)
[2017-08-16] MEDS ORDERED: MEPERIDINE (DEMEROL) INJ 50 MG/ML IVP PRN (09:00)
[2017-08-16] MEDS ORDERED: morphine INJ 10 MG/ML 1ML (SYR OR VIAL) IVP PRN (09:00)
[2017-08-16] MEDS ORDERED: ONDANSETRON 4 MG/2 ML (SDV) Z0FRAN IVP PRN (09:00)
[2017-08-16] MEDS ORDERED: KETOROLAC 30 MG/ML VIAL ONE (09:06)
[2017-08-16] MEDS: KETOROLAC 30 MG/ML VIAL IV PRN ×2 (09:07→15:05)
[2017-08-16 09:50] VITALS: BP 120/84
[2017-08-16] MEDS ORDERED: IBUPROFEN 600 MG (MOTRIN) TAB PO PRN (10:30)
--- NOTE | 2017-08-16 11:43 | OPERATIVE REPORT ---
DATE OF SERVICE: PREOPERATIVE DIAGNOSES: 1. A 41-year-old female with chronic pelvic pain. 2. Fibroid uterus. 3. History of recurrent cervical dysplasia. POSTOPERATIVE DIAGNOSES: 1. A 41-year-old female with chronic pelvic pain. 2. Fibroid uterus. 3. History of recurrent cervical dysplasia. 4. Right ovarian enlargement with dark appearing cystic structure. PROCEDURE: Robotic-assisted total laparoscopic hysterectomy with right salpingo-oophorectomy. SURGEON: Arturo Levine DO. EXTENSION AGENT: MAX Cadena ANESTHESIA: General endotracheal. ESTIMATED BLOOD LOSS: Minimal. URINE OUTPUT: 250 mL, clear at the end of the procedure. FLUIDS: 1100 mL lactated Ringer solution. FINDINGS: A normal appearing uterus, the absence or obliteration of bilateral fallopian tubes. Normal appearing left ovary. The right ovary appeared multicystic with some dense structures and darker structures within the ovary consistent with a possible old ovarian hematoma or hemorrhagic cyst. SPECIMEN SENT: Uterus, right ovary and fallopian tube remnant. INDICATIONS FOR PROCEDURE: This 41-year-old female with a consultation to me from the [facility] for history of recurrent cervical dysplasia as well as chronic pelvic pain despite more conservative management. The patient in preop was evaluated. Ultrasound was performed finding a fibroid uterus was also discovered as well. The patient wished to proceed with hysterectomy due to history in her family of gynecologic cancers according to the patient as well as her concern of repeat colposcopies and she had had several abnormal Pap smears in the past, looking back into her file, her most recent Pap smear was normal; however, she did have a previous history of low-grade cervical dysplasia that did appear to be recurrent despite all colposcopic management and following. She also describes a chronic pelvic pain, had tried more conservative options without any alleviation of her symptoms. Finally, we discussed proceeding with hysterectomy at the patient's request. This was the option we proceeded with. Risk of the procedure were discussed with the patient in detail including risk of bleeding, infection, damage to any surrounding structures including but not limited to the bowel, bladder, ureter, kidneys, possible need for reoperation,risk of postoperative hematoma formation, possible postoperative thromboembolic events, risk from anesthesia and even . After everything was discussed with the patient, consent was obtained preoperatively and the patient was taken to the operating room. OPERATIVE REPORT IN DETAIL: Once in the operating room, general anesthesia was found to be adequate. She was placed in dorsal lithotomy position, prepped and draped in normal sterile fashion. A weighted speculum inserted to the patient's vagina after Lopez catheter was placed using sterile technique. A right angle retractor was used to visualize the cervix. An 0 Vicryl suture was placed in the anterior lip of the cervix and was used as my retraction point. I then sound the uterine cavity depth was found to be 8 cm. I then placed an 8 cm Lor uterine manipulator tip and 3.5 cm colpotomy ring into the uterine. The tip was placed into the uterine cavity, the balloon was deployed and the ring was applied to the vaginal fornix. After which all other instruments were removed from the patient's vagina, a change of gloves was performed and attention was taken to the abdomen where infraumbilical infiltrates using 0.25% Marcaine to make an 8 mm incision and directed the Veress needle through this incision until intraperitoneal placement was confirmed using the saline drop test. I then proceeded with insufflation of CO2 gas and opening pressure of 5 mmHg was noted. I then proceed to a maximum pressure of 15 mmHg, at which point, I removed the Veress needle and introduced an 8 mm blunt Da Farzad camera trocar. Once this is in place, I am able to confirm intraperitoneal placement using the Da Farzad laparoscope. As the patient was placed in steep Trendelenburg, I am able to visualize all the findings described above. I then placed 2 lateral trocars. These were both 8 mm trocars. Skin is infiltrated using 0.25% Marcaine and 8 mm incisions were made with a knife and then trocar was directed through the abdominal wall under direct visualization of the laparoscope. Both of these trocars were approximately 8 cm lateral to my infraumbilical trocar. I then bring in the Da Farzad robot and docked in the appropriate fashion placing the vessel sealer in the left hand and the monopolar rachel in the right hand. On the left side, I grasped the uteroovarian ligament, bipolar cauterized this and transected this using the vessel sealer. I then grasped the round ligament, bipolar cauterized this and transected this using the vessel sealer. On the right side, I grasped the infundibulopelvic ligament, bipolar cauterized and transected this using the vessel sealer. I then grasped the round ligament, bipolar cauterized and transected using the vessel sealer. Bilateral dissection at that point is identical. I grasped the broad ligament, bipolar cauterized this and transected this using vessel sealer down to the level of the lower uterine segment, at which point, I the anterior and posterior leaflets. The anterior leaflet is dissected around to the anterior vaginal fornix. The posterior leaflet was taken down to the posterior vaginal fornix. This allowed me to skeletonize the uterine vessels laterally which I bipolar cauterized this and transected using vessel sealer. I then performed a colpotomy at 12 o'clock position. I used monopolar rachel and taken circumferentially around the vaginal fornix, amputating the cervix away from the vagina. I then removed the entire specimen to the vagina. I proceeded with closing the vaginal cuff and the lateral vaginal apices are colposuspended through the uterosacral ligaments using 2-0 Vicryl suture in a [id number] fashion. I then closed the remainder of the vaginal cuff using 2-0 V-Loc in a running fashion, after which was no active bleeding noted from any of my dissection planes. I undocked the Da Farzad robot and proceeded with the remainder of the case laparoscopically. I copiously irrigated the pelvis using normal saline. Once again, there is no active bleeding noted from any of my dissection planes. Bilateral ureters are identified and found to be peristalsing clear of my dissection planes. We then placed FloSeal hemostatic agent over all my planes of dissection and I had the patient taken out of steep Trendelenburg. I removed the lateral trocars under direct visualization of the laparoscope. The infraumbilical trocar was removed after 0.25% Marcaine 10 mL was introduced into the peritoneal cavity and insufflation was removed after which I removed this trocar. The skin was reapproximated using 4-0 Monocryl in interrupted subcuticular stitches. Dermabond was applied to the incisions and Band-Aids were placed over the incision. Lopez catheter was left in place. The patient tolerated the procedure well and sent to recovery area in stable condition. Lap and sponge counts were correct at the end of the procedure. Instrument counts were correct as well. One gram of Ancef and 500 mg of Flagyl were given preoperatively for infection prophylaxis. Job ID: [id number] DocumentID: [id number] Dictated Date: 08/16/2017 08:43:16 Technical Asst Date: 08/16/2017 11:42:50 Dictated By: DO LC LIND
[2017-08-16 12:10] VITALS: BP 106/72
[2017-08-17] MEDS ORDERED: IBUPROFEN 600 MG (MOTRIN) TAB PO PRN (00:15)
--- NOTE | 2017-08-17 14:46 | Anesthesia-General Post-Op ---
General Patient Condition Mental Status/LOC: Same as Preop Cardiovascular: Satisfactory Nausea/Vomiting: Absent Respiratory: Satisfactory Pain: Controlled Complications: Absent Post Op Complications Complications None Follow Up Care/Instructions Patient Instructions None needed. Anesthesia/Patient Condition Patient Condition Patient already D/C'd to home. No complications noted per nursing staff. PING RYAN DO Aug 17, 2017 14:46
== END 2017-08-16 16:30 | disposition home or self-care (01) ==
LOC: SDC 06:00 → WS 09:50 → SDC 16:30
PROVIDERS: ATTEND Obstetrics & Gynecology
DX: N80.0 Endometriosis of uterus (principal); N80.2 Endometriosis of fallopian tube; D27.0 Benign neoplasm of right ovary; R10.2 Pelvic and perineal pain; Z87.410 Personal history of cervical dysplasia
CPT/HCPCS: 84703; 86850; 86900; 86901; 88307

== ENCOUNTER → 2020-07-28 | Outpatient (CLI) | payer MEDICARE, MEDICAID ==
[~2020-07-28] MED LIST changes: +CLN.1T PO; -CLON0.1T PO; +DOCU100C37 PO; +HYDR-34 PO; +IBUP-844 PO; -OXCA300T PO; +OXCA300T18 PO; +SIME80TA16 PO
--- NOTE | 2020-07-28 13:53 | Diagnostic Imaging Report ---
INDICATION: Routine screening. COMPARISON: 06/26/2017 and 06/25/2015. TECHNIQUE: 2D and 3D bilateral screening mammography was performed with CAD. FINDINGS: Both breasts remain heterogeneously dense, limiting the sensitivity of mammography. No mass or malignant appearing microcalcifications are seen. The axillae are unremarkable. IMPRESSION: No mammographic features suspicious for malignancy are identified. ACR BI-RADS Category 1: Negative. Result letter will be mailed to the patient. Note: At least 10% of breast cancer is not imaged by mammography. Dictated by: Dictated on workstation # [id number]
== END ==
LOC: RAD 10:01
PROVIDERS: ATTEND Family Medicine
DX: Z12.31 Encounter for screening mammogram for malignant neoplasm of breast (principal)
CPT/HCPCS: 77063; 77067

== ENCOUNTER → 2021-12-26 | Outpatient (CLI) | payer MEDICARE, MEDICAID ==
[~2021-12-26] MED LIST changes: +LURA40TA2 PO; -LURA40TA3 PO
--- NOTE | 2021-12-27 14:43 | Diagnostic Imaging Report ---
INDICATION: Routine screening. Comparison is made with prior mammogram 07/28/2020 and 06/26/2017. 2-D and 3-D bilateral screening mammography was performed with CAD. Both breasts are heterogeneously dense, limiting the sensitivity of mammography. No mass or malignant-appearing microcalcifications are seen. Axillae are unremarkable. IMPRESSION: No mammographic features suspicious for malignancy are identified. ACR BI-RADS Category 1: Negative. Result letter will be mailed to the patient. Note: At least 10% of breast cancer is not imaged by mammography. BI-RADS Category 1 Dictated by: Dictated on workstation # [id number]
== END ==
LOC: RAD 15:00
PROVIDERS: ATTEND Family Medicine
DX: Z12.31 Encounter for screening mammogram for malignant neoplasm of breast (principal)
CPT/HCPCS: 77063; 77067

== ENCOUNTER 2022-02-02 10:51 | Emergency (ER) | payer MEDICARE, MEDICAID ==
[~2022-02-02] VITALS: Ht 162 cm; Wt 55.7 kg
--- NOTE | 2022-02-02 11:13 | ED Neurological Problem ---
General Chief Complaint: Neurological Problems Stated Complaint: POSSIBLE SEIZURE Nursing Triage Note: PT PRESENTS TO ED VIA EMS FROM HOME WITH COMPLAINTS OF SEIZURE LIKE ACTIVITY LASTING APROX 2-3 MIN. EMS REPROTS PT WAS POSTICTAL UPON THEIR ARRIVAL. PT IS ALERT AND ORIENTED UPON HER ARRIVAL TO ED. PT REPORTS NO HISTORY OF PREVIOUS SEIZURES. EMS REPORTS ON EPIDODE OF EMESIS IN ROUTE AND REPORTS GIVING 4 MG OF ZOFRAN. Source: patient Exam Limitations: no limitations History of Present Illness Date Seen by Provider: Feb 02, 2022 Time Seen by Provider: 10:50 Initial Comments Patient is a 46-year-old female history of bipolar disorder who presents to the emergency room by ambulance today after witnessed seizure by family member. Patient only remembers waking up at about 830 this morning, letting her dogs out and sitting on the couch to watch TV. Further history reveals that the patient smoked marijuana approximately an hour prior to arrival at around 10 AM. She states she got her marijuana from her usual source. She denies any other recreational drug use. She denies any recent illnesses such as fevers, chills, flulike symptoms. No chest pain, shortness of breath, problems with bowel or bladder. EMS reports that she did vomit prior to arrival and received 4 mg of Zofran IV. She was reportedly "postictal" but back to normally mentating on arrival to the ED. She has never had a seizure before. No family history of seizure disorders. She denies taking opiate pain medications. No recent traumas. Last time she ate was last night. Normal blood sugar per EMS. Patient states she "feels funny" On arrival the patient is persistently yawning and has piloerection. Pupils are 2 mm bilaterally, equal. She did not bite her tongue, no intraoral injury. No other complaints of pain. Status post hysterectomy, no chance of . Slightly hypotensive with a systolic blood pressure of 89. Oxygen saturations are normal. Pulse is 100. Timing/Duration: 1/2 hour Severity: moderate Allergies and Home Medications Allergies Coded Allergies: No Known Drug Allergies (Unverified , 08/09/17) Patient Home Medication List Home Medication List Reviewed: Yes Clonidine HCl (Clonidine HCl) 0.1 Mg Tablet, 0.1 MG PO TID, (Reported) Entered as Reported by: MAXWELL SELLERS on 08/09/17 1428 Docusate Sodium (Docusate Sodium) 100 Mg Capsule, 100 MG PO BID PRN for CONSTIPATION-1ST LINE Prescribed by: JOSSELIN ESTRELLA on 08/16/17728 Hydrocodone Bit/Acetaminophen (Lortab 7.5 Mg Tablet) 1 Ea Tablet, 2 EA PO Q6H PRN for Pain-See Instructions Prescribed by: JOSSELIN ESTRELLA on 08/16/17728 Ibuprofen (Ibu) 600 Mg Tablet, 600 MG PO Q6H PRN for PAIN-MODERATE Prescribed by: JOSSELIN ESTRELLA on 08/16/17728 Lurasidone HCl (Latuda) 40 Mg Tablet, 40 MG PO HS, (Reported) Entered as Reported by: MAXWELL SELLERS on 08/09/171427 Oxcarbazepine (Oxcarbazepine) 300 Mg Tablet, 300 MG PO BID, (Reported) Entered as Reported by: MAXWELL SELLERS on 08/09/171427 Simethicone (Simethicone) 80 Mg Tab.chew, 40 MG PO TID PRN for INDIGESTION 2ND LINE Prescribed by: JOSSELIN ESTRELLA on 08/16/17728 Review of Systems Review of Systems Constitutional: see HPI Eyes: No Symptoms Reported Ears, Nose, Mouth, Throat: no symptoms reported Respiratory: no symptoms reported Cardiovascular: no symptoms reported Gastrointestinal: no symptoms reported Genitourinary: no symptoms reported : No Musculoskeletal: no symptoms reported Skin: no symptoms reported Psychiatric/Neurological: Other (h/o BPD; "feels funny") Endocrine: Other (feels "cold") All Other Systems Reviewed Negative Unless Noted: Yes Past Pwqyjha-Kckwew-Woemij Hx Patient Social History Tobacco Use?: Yes Tobacco type used: Cigarettes Smoking Status: Current Everyday Smoker Substance use?: Yes Substance type: Marijuana Alcohol Use?: No Pt feels they are or have been: No Immunizations Up To Date First/Initial COVID19 Vaccinat: YES Second COVID19 Vaccination Aubrey: YES Seasonal Allergies Seasonal Allergies: Yes Past Medical History Surgery/Hospitalization HX: PMH: BIPOLAR SX: HYST, TUBAL Surgeries: Yes (DXLS, LEEP, VAGINAL TEAR REPAIR, NASAL FX) Respiratory: No (POSSIBLE ASTHMA DOESN'T REQUIRE INHALERS) Cardiac: No Neurological: Yes (QUESTIONABLE SEIZURE PER PT) Reproductive Disorders: Yes Genitourinary: No Gastrointestinal: No Musculoskeletal: Yes Chronic Back Pain Endocrine: No HEENT: No Cancer: Yes Cervical Psychosocial: Yes Anxiety, Bipolar, Depression Integumentary: No Blood Disorders: No Family Medical History Patient reports no known family medical history. Physical Exam Vital Signs Vital Signs - First Documented 02/02/22 10:58 Temp 35.9 Pulse 100 Resp 18 B/P (MAP) 92/75 (81) Pulse Ox 99 Capillary Refill : Less Than 3 Seconds Height, Weight, BMI Height: 5'5.00" Weight: 142lbs. 0.0oz. 64.215236ze; 21.00 BMI Method: General Appearance: no apparent distress, other (yawning) HEENT: PERRL/EOMI ((wears THICK glasses)), pharynx normal, other (no tongue biting or intraoral injury; poor dentition) Neck: non-tender, full range of motion, supple, normal inspection Respiratory: lungs clear, normal breath sounds, no respiratory distress, no accessory muscle use Cardiovascular: regular rate, rhythm, tachycardia (100) Peripheral Pulses: 2+ Radial Pulses (R), 2+ Radial Pulses (L) Gastrointestinal: normal bowel sounds, non tender, soft Neurologic/Psychiatric: parts analyst II-XII nml as tested, no motor/sensory deficits, alert, normal mood/affect, oriented x 3 Crainal Nerves: normal hearing, normal speech, PERRL (pupils 2mm bilaterally) Motor/Sensory: no motor deficit, no sensory deficit Skin: normal color, warm/dry, other (piloerection) Progress/Results/Core Measures Results/Orders Lab Results Laboratory Tests Test 02/02/22 10:55 02/02/22 11:11 02/02/22 13:15 Range/Units White Blood Count 11.5 H 4.3-11.0 10^3/uL Red Blood Count 4.75 3.80-5.11 10^6/uL Hemoglobin 15.0 11.5-16.0 g/dL Hematocrit 44 35-52 % Mean Corpuscular Volume 93 80-99 fL Mean Corpuscular Hemoglobin 32 25-34 pg Mean Corpuscular Hemoglobin Concent 34 32-36 g/dL Red Cell Distribution Width 13.1 10.0-14.5 % Platelet Count 357 130-400 10^3/uL Mean Platelet Volume 10.0 9.0-12.2 fL Immature Granulocyte % (Auto) 0 % Neutrophils (%) (Auto) 63 42-75 % Lymphocytes (%) (Auto) 29 12-44 % Monocytes (%) (Auto) 7 0-12 % Eosinophils (%) (Auto) 1 0-10 % Basophils (%) (Auto) 0 0-10 % Neutrophils # (Auto) 7.2 1.8-7.8 10^3/uL Lymphocytes # (Auto) 3.4 1.0-4.0 10^3/uL Monocytes # (Auto) 0.8 0.0-1.0 10^3/uL Eosinophils # (Auto) 0.1 0.0-0.3 10^3/uL Basophils # (Auto) 0.0 0.0-0.1 10^3/uL Immature Granulocyte # (Auto) 0.1 0.0-0.1 10^3/uL Sodium Level 137 135-145 MMOL/L Potassium Level 4.0 3.6-5.0 MMOL/L Chloride Level 102 98-107 MMOL/L Carbon Dioxide Level 23 21-32 MMOL/L Anion Gap 12 5-14 MMOL/L Blood Urea Nitrogen 9 7-18 MG/DL Creatinine 0.83 0.60-1.30 MG/DL Estimat Glomerular Filtration Rate 87 BUN/Creatinine Ratio 11 Glucose Level 121 H 70-105 MG/DL Calcium Level 9.7 8.5-10.1 MG/DL Corrected Calcium 9.5 8.5-10.1 MG/DL Total Bilirubin 0.4 0.1-1.0 MG/DL Aspartate Amino Transf (AST/SGOT) 18 5-34 U/L Alanine Aminotransferase (ALT/SGPT) 15 0-55 U/L Alkaline Phosphatase 75 40-136 U/L Total Protein 7.4 6.4-8.2 GM/DL Albumin 4.2 3.2-4.5 GM/DL Glucometer 115 H 70-110 MG/DL Urine Opiates Screen NEGATIVE NEGATIVE Urine Oxycodone Screen NEGATIVE NEGATIVE Urine Methadone Screen NEGATIVE NEGATIVE Urine Propoxyphene Screen NEGATIVE NEGATIVE Urine Barbiturates Screen NEGATIVE NEGATIVE Ur Tricyclic Antidepressants Screen NEGATIVE NEGATIVE Urine Phencyclidine Screen NEGATIVE NEGATIVE Urine Amphetamines Screen NEGATIVE NEGATIVE Urine Methamphetamines Screen NEGATIVE NEGATIVE Urine Benzodiazepines Screen NEGATIVE NEGATIVE Urine Cocaine Screen NEGATIVE NEGATIVE Urine Cannabinoids Screen POSITIVE H NEGATIVE My Orders Orders - ANGIE CHERRY MD Ed Iv/Invasive Line Start (02/02/22 10:54) Accucheck Stat ONCE (02/02/22 10:54) Ekg Tracing (02/02/22 10:54) Ed Iv/Invasive Line Start (02/02/22 11:06) Cbc With Automated Diff (02/02/22 11:06) Comprehensive Metabolic Panel (02/02/22 11:06) Drug Screen Stat (Urine) (02/02/22 11:06) Vital Signs/I&O 02/02/22 10:58 Temp 35.9 Pulse 100 Resp 18 B/P (MAP) 92/75 (81) Pulse Ox 99 Blood Pressure Mean: 81 Progress Progress Note #1: Time: 13:50 Progress Note Patient seen and examined, 46-year-old with isolated seizure just prior to arrival. Patient has never had a seizure before, is not on any antiseizure medications. She denies illicit drug use, no recent illnesses, no trauma. Evaluation today includes basic laboratory studies, urine drug screen, EKG. She had no focal neurologic deficits that would require CT head without contrast or with contrast. Neurologically normal. No ongoing seizure activity. No altered mental status. No fevers or chills to suggest a sepsis picture, meningitis or encephalitis. She has stable vital signs with a blood pressure in the 90s systolic throughout her stay. I reexamined her and discussed with her findings and plan of care. Her was also at the bedside. I advised that she call Dr. Rubio's office today for a follow-up appointment early next week. Return precautions were provided. She verbalizes understanding, she is comfortable with plan of care. All questions are sought and answered. Progress Note #2: Time: 14:11 Progress Note Notified by patient's nurse KYM Kay that at discharge her systolic blood p ressure was 87. She is not tachycardic. Most of her blood pressures have been in the upper 90s systolic she did have a few in the 70s however she was laying on her right side curled up in a ball. She does not really appear dry although she may be somewhat volume depleted. We are going to go ahead and give her a liter of normal saline, recheck vitals and then make decision for disposition after that. She is neurologically still normal, no other clinical concerns at this time Initial ECG Impression Date: Feb 02, 2022 Initial ECG Impression Time: 11:01 Initial ECG Rate: 96 Initial ECG Rhythm: Normal Sinus Initial ECG Intervals: Normal Initial ECG Impression: Normal Departure Impression Primary Impression: Seizure Disposition: HOME, SELF-CARE Condition: Stable Departure-Patient Inst. Decision time for Depature: 13:52 Referrals: LATIA RUBIO MD (PCP/Family) Primary Care Physician Patient Instructions: Seizures Add. Discharge Instructions: You need to call today and make a follow-up appointment with Dr. Rubio next week. Do not drive a car until you have followed up. Do not lock the bathroom door if you are bathing or showering. Do not climb step ladders until you follow-up with Dr. Rubio. We have not found a reason for your seizures today. You do not need antiseizure medication at this time. Your lab work has been normal today. Return to the emergency department for any new, concerning or emergent complaints. Copy Copies To 1: LATIA RUBIO MD, KATHRYN M MD Feb 02, 2022 11:13
[2022-02-02 11:21] LABS: BASOPHILS % (AUTO) 0 % (0-10); EOSINOPHILS # (AUTO) 0.1 10^3/uL (0.0-0.3); EOSINOPHILS % (AUTO) 1 % (0-10); HEMATOCRIT 44 % (35-52); LYMPHOCYTES # (AUTO) 3.4 10^3/uL (1.0-4.0); LYMPHOCYTES % (AUTO) 29 % (12-44); MEAN CORPUSCULAR HEMOGLOBIN 32 pg (25-34); MEAN CORPUSCULAR HGB CONC 34 g/dL (32-36); MEAN CORPUSCULAR VOLUME 93 fL (80-99); MONOCYTES # (AUTO) 0.8 10^3/uL (0.0-1.0); MONOCYTES % (AUTO) 7 % (0-12); NEUTROPHILS # (AUTO) 7.2 10^3/uL (1.8-7.8); NEUTROPHILS % (AUTO) 63 % (42-75); PLATELET COUNT 357 10^3/uL (130-400); WHITE BLOOD COUNT 11.5 10^3/uL (4.3-11.0)
[2022-02-02 11:25] LABS: ALBUMIN 4.2 GM/DL (3.2-4.5)
[2022-02-02 11:27] LABS: CALCIUM 9.7 MG/DL (8.5-10.1)
[2022-02-02 11:28] LABS: TOTAL PROTEIN 7.4 GM/DL (6.4-8.2)
[2022-02-02 11:30] LABS: BILIRUBIN,TOTAL 0.4 MG/DL (0.1-1.0)
[2022-02-02 11:32] LABS: CREATININE SERUM 0.83 MG/DL (0.60-1.30)
[2022-02-02 13:31] LABS: AMPHETAMINE SCREEN, URINE NEGATIVE (NEGATIVE); BARBITURATE SCREEN URINE NEGATIVE (NEGATIVE); BENZODIAZEPINES SCREEN URINE NEGATIVE (NEGATIVE); CANNABINOID SCREEN, URINE POSITIVE (NEGATIVE); COCAINE SCREEN URINE NEGATIVE (NEGATIVE); METHADONE STAT NEGATIVE (NEGATIVE); OPIATE SCREEN URINE NEGATIVE (NEGATIVE); OXYCODONE STAT NEGATIVE (NEGATIVE); PROPOXYPHENE STAT NEGATIVE (NEGATIVE); TRICYCLIC ANTIDEPRESSANTS SCRE NEGATIVE (NEGATIVE)
[2022-02-02] MEDS ORDERED: NS IV 1000 ML 1,000 ML IV STA (14:10)
[2022-02-02 15:25] VITALS: BP 104/68
== END 2022-02-02 15:25 | disposition home or self-care (01) ==
LOC: EDUNIT# 10:51 → ER 10:53
DX: R56.9 Unspecified convulsions (principal); F17.210 Nicotine dependence, cigarettes, uncomplicated
CPT/HCPCS: 36415; 80053; 80306; 82947; 85025; 93005